=== PATIENT | male | born 1955 | race Caucasian/White ===

== ENCOUNTER 2018-05-08 12:01 | Inpatient (IN) | payer BC, OTHER ==
[~2018-05-08] VITALS: Ht 177.8 cm; Wt 68.0 kg
[2018-05-08] MEDS ORDERED: normal saline 1000ML IV soln IVB ONE ×2 (12:20)
[2018-05-08] MEDS ORDERED: diphenhydrAMINE 50 mg/ml inj IV ONE (12:20)
[2018-05-08] MEDS ORDERED: metoclopramide 5 mg/ml inj IV ONE (12:20)
[2018-05-08] MEDS ORDERED: LORazepam 2 mg/ml vial IV ONE (12:40)
[2018-05-08 12:41] LABS: BASOPHILS % (AUTO) 0.1 % (0-1); EOSINOPHILS % (AUTO) 0 % (0-6); HEMATOCRIT 41.9 % (42.0-52.0); HEMOGLOBIN 14.3 g/dl (14.0-17.9); LYMPHOCYTES % (AUTO) 6.4 % (21-51); MEAN CORPUSCULAR HEMOGLOBIN 30.8 PG (27.0-31.0); MEAN CORPUSCULAR HGB CONC 34.1 % (33.0-36.5); MEAN CORPUSCULAR VOLUME 90.3 FL (78-98); MEAN PLATELET VOLUME 7.8 FL (7.4-10.4); MONOCYTES # (AUTO) 1.3 X10'3 (0-0.9); MONOCYTES % (AUTO) 8.2 % (2-12); NEUTROPHILS # (AUTO) 13.7 X10'3 (1.8-7.7); NEUTROPHILS % (AUTO) 85.3 % (42-75); PLATELET COUNT 192 X10'3 (140-440); RED BLOOD COUNT 4.64 X10'6 (4.70-6.10); RED CELL DISTRIBUTION WIDTH 12.7 % (11.5-14.5); WHITE BLOOD COUNT 16.1 X10'3 (4.5-11.0)
[2018-05-08 12:51] LABS: INR 1.1 INR
[2018-05-08 13:04] LABS: ALANINE AMINOTRANSFERASE 15 U/L (12-78); ALBUMIN 3.4 G/DL (3.4-5.0); ALBUMIN/GLOBULIN RATIO 0.8 (1.1-1.5); ALKALINE PHOSPHATASE 109 IU/L (46-116); ANION GAP 8 (8-16); ASPARTATE AMINO TRANSFERASE 12 U/L (10-37); BILIRUBIN,TOTAL 1.1 MG/DL (0.1-1.0); BLOOD UREA NITROGEN 13 MG/DL (7-18); BUN/CREATININE RATIO 13.3 (5.4-32.0); CALCIUM 8.9 MG/DL (8.5-10.1); CHLORIDE 95 MMOL/L (99-107); CREATININE 0.98 MG/DL (0.60-1.10); GLUCOSE 119 MG/DL (70-104); LIPASE 56 U/L (73-393); POTASSIUM 3.7 MMOL/L (3.5-5.1); SODIUM 130 MMOL/L (135-145); TOTAL CARBON DIOXIDE 27.2 MMOL/L (24-32); TOTAL PROTEIN 7.5 G/DL (6.4-8.2); eGFR 78 ML/MIN
[2018-05-08] MEDS ORDERED: CefTRIAXone 2gm/D5W 50ml 50 ML IV ONE (13:15)
[2018-05-08 13:20] LABS: CLARITY,URINE CLOUDY (Clear); COLOR,URINE YELLOW (Yellow); GLUCOSE, URINE NEGATIVE (Neg); KETONES,URINE 15 mg/dl (Neg); LEUKOCYTE ESTERASE ,URINE NEGATIVE (Neg); NITRITES, URINE NEGATIVE (Neg); OCCULT BLOOD,URINE TRACE-INTACT (Neg); PROTEIN,URINE TRACE mg/dl (Neg)
[2018-05-08 13:22] LABS: UA COLLECTION TYPE URINAL
[2018-05-08 13:33] LABS: AMORPHOUS PHOSPHATES 2+; BACTERIA,URINE NONE SEEN /HPF (Neg); RBC,URINE 0-2 /HPF (0-2); SQUAMOUS EPITHELIAL CELL,UR FEW /LPF (FEW); WBC,URINE 0-4 /HPF (0-4)
[2018-05-08] MEDS ORDERED: morphine 4 MG/ML inj SYRINge IV ONE (14:45)
[2018-05-08] MEDS ORDERED: dexamethasone 4mg/ml inj IV SCH (14:45)
[2018-05-08] MEDS ORDERED: levoFLOXACIN 250mg tablet PO ONE (14:45)
[2018-05-08] MEDS ORDERED: dexamethasone 4mg/ml inj IV ONE (14:50)
[2018-05-08] MEDS ORDERED: PANT-47 PO (14:50)
[2018-05-08] MEDS ORDERED: normal saline 500ml IV soln 500 ML IV ONE (15:25)
[2018-05-08] MEDS ORDERED: morphine 4 MG/ML inj SYRINge IV PRN ×2 (15:30)
[2018-05-08] MEDS ORDERED: ondansetron/PF 4mg/2ml inj IV PRN (15:30)
[2018-05-08] MEDS ORDERED: acetaminophen 650mg rectal suppository RC PRN (15:30)
[2018-05-08] MEDS ORDERED: HYDROmorphone inj. 0.5 MG/0.5 ML DISP.SYRIN IV PRN ×2 (15:30)
[2018-05-08] MEDS ORDERED: bisacodyl 10mg suppository rectal RC PRN (15:30)
[2018-05-08] MEDS ORDERED: HYDROcodone/acetaminophen 5mg/325mg tablet PO PRN (15:30)
[2018-05-08] MEDS ORDERED: acetaminophen 325mg tablet PO PRN ×2 (15:30)
[2018-05-08] MEDS ORDERED: mag hydrox/Alum hydrox/simeth 30ml oral suspension PO PRN (15:30)
[2018-05-08] MEDS ORDERED: diphenhydrAMINE 25mg capsule PO PRN (15:30)
[2018-05-08] MEDS ORDERED: HYDROcodone/acetaminophen 10/325mg tab PO PRN (15:30)
[2018-05-08] MEDS ORDERED: diphenhydrAMINE 50 mg/ml inj IV PRN (15:30)
[2018-05-08] MEDS ORDERED: metoclopramide 5 mg/ml inj IV PRN (15:30)
[2018-05-08] MEDS ORDERED: magnesium hydroxide 30ml (MOM) UD suspension PO PRN (15:30)
[2018-05-08] MEDS ORDERED: pantoprazole 40 MG vial IV ONE (15:35)
[2018-05-08] MEDS ORDERED: iohexol 350MG/ML 100ml bottle IV ONE (15:38)
[2018-05-08 16:10] LABS: CREATINE KINASE 53 U/L (39-308); MAGNESIUM 1.6 MG/DL (1.5-2.4); PHOSPHORUS 1.7 MG/DL (2.3-4.5)
[2018-05-08] MEDS: normal saline 1000ml 1,000 ML IV SCH ×2 (16:15→19:36)
[2018-05-08] MEDS: heparin, porcine 5000 units/ml vial SQ SCH (16:35)
[2018-05-08 19:00] VITALS: BP 143/63
[2018-05-08] MEDS ORDERED: sodium phosphate inj. 30 MMOL in dextrose 5%-water 250 ML IV PRN (19:35)
[2018-05-08] MEDS ORDERED: Neutra Phos packet PO PRN (19:35)
[2018-05-08] MEDS ORDERED: sodium phosphate inj. 15 MMOL in dextrose 5%-water 150 ML IV PRN (19:35)
[2018-05-08] MEDS ORDERED: sodium phosphate inj. 15 MMOL in dextrose 5%-water 150 ML IV ONE (19:40)
[2018-05-08] MEDS: docusate sod 100mg capsule PO SCH (20:55)
[2018-05-08] MEDS ORDERED: temazepam 15mg capsule PO PRN (21:00)
[2018-05-09] VITALS: BP 128/74
[2018-05-09] MEDS: heparin, porcine 5000 units/ml vial SQ SCH ×3 (00:01→17:44)
[2018-05-09] MEDS: normal saline 1000ml 1,000 ML IV SCH ×2 (05:37→19:28)
[2018-05-09 05:52] LABS: BASOPHILS % (AUTO) 0.2 % (0-1); EOSINOPHILS % (AUTO) 0 % (0-6); HEMATOCRIT 37.7 % (42.0-52.0); HEMOGLOBIN 12.8 g/dl (14.0-17.9); LYMPHOCYTES # (AUTO) 1.7 X10'3 (1.1-4.8); LYMPHOCYTES % (AUTO) 12.9 % (21-51); MEAN CORPUSCULAR HEMOGLOBIN 30.7 PG (27.0-31.0); MEAN CORPUSCULAR HGB CONC 33.8 % (33.0-36.5); MEAN CORPUSCULAR VOLUME 90.7 FL (78-98); MEAN PLATELET VOLUME 8.6 FL (7.4-10.4); MONOCYTES # (AUTO) 1.4 X10'3 (0-0.9); MONOCYTES % (AUTO) 10.6 % (2-12); NEUTROPHILS # (AUTO) 9.7 X10'3 (1.8-7.7); NEUTROPHILS % (AUTO) 76.3 % (42-75); PLATELET COUNT 194 X10'3 (140-440); RED BLOOD COUNT 4.15 X10'6 (4.70-6.10); RED CELL DISTRIBUTION WIDTH 12.1 % (11.5-14.5); WHITE BLOOD COUNT 12.8 X10'3 (4.5-11.0)
[2018-05-09 06:03] LABS: ALANINE AMINOTRANSFERASE 17 U/L (12-78); ALBUMIN 2.6 G/DL (3.4-5.0); ALBUMIN/GLOBULIN RATIO 0.7 (1.1-1.5); ALKALINE PHOSPHATASE 96 IU/L (46-116); ANION GAP 9 (8-16); ASPARTATE AMINO TRANSFERASE 11 U/L (10-37); BILIRUBIN,TOTAL 0.7 MG/DL (0.1-1.0); BLOOD UREA NITROGEN 10 MG/DL (7-18); BUN/CREATININE RATIO 11.2 (5.4-32.0); CALCIUM 8.1 MG/DL (8.5-10.1); CHLORIDE 102 MMOL/L (99-107); CHOL/HDL RATIO 3.9 (0.00-4.99); CHOLESTEROL 110 MG/DL (0-200); CREATININE 0.89 MG/DL (0.60-1.10); GLUCOSE 83 MG/DL (70-104); HDL CHOLESTEROL 28 MG/DL (35-60); LDL CHOLESTEROL 66 MG/DL (50-100); POTASSIUM 3.4 MMOL/L (3.5-5.1); SODIUM 135 MMOL/L (135-145); TOTAL CARBON DIOXIDE 24.5 MMOL/L (24-32); TOTAL PROTEIN 6.3 G/DL (6.4-8.2); TRIGLYCERIDES 83 MG/DL (20-135); eGFR 87 ML/MIN
[2018-05-09 07:00] VITALS: BP 124/67
[2018-05-09] MEDS: docusate sod 100mg capsule PO SCH ×2 (08:11→19:35)
[2018-05-09] MEDS ORDERED: potassium Cl 40MEQ/NS 500ml 500 ML IV PRN ×2 (09:00)
[2018-05-09] MEDS ORDERED: potassium Cl 20 mEq SR tablet PO PRN ×3 (09:00→11:15)
[2018-05-09 11:00] VITALS: BP 135/71
[2018-05-09] MEDS: levoFLOXACIN 750MG TABLET PO SCH (11:13)
[2018-05-09] MEDS ORDERED: albuterol 2.5 MG/3 ML nebule ONE (13:37)
[2018-05-09] MEDS: potassium Cl 20 mEq SR tablet PO PRN ×2 (13:46→17:44)
[2018-05-09 16:36] LABS: CLARITY,URINE Clear (Clear); COLOR,URINE Yellow (Yellow); GLUCOSE, URINE Negative (Neg); KETONES,URINE Trace mg/dl (Neg); LEUKOCYTE ESTERASE ,URINE Negative (Neg); NITRITES, URINE Negative (Neg); OCCULT BLOOD,URINE Negative (Neg); PH,URINE 6.5 (4.8-8.0); PROTEIN,URINE Negative (Neg)
[2018-05-09 16:39] LABS: UA COLLECTION TYPE CLN CATCH MIDSTREAM
[2018-05-09] MEDS: magnesium oxide 400mg tablet PO SCH (17:43)
[2018-05-09 19:45] VITALS: BP 125/71
[2018-05-09 23:51] VITALS: BP 127/73
[2018-05-10] MEDS: magnesium oxide 400mg tablet PO SCH ×3 (00:33→16:21)
[2018-05-10] MEDS: heparin, porcine 5000 units/ml vial SQ SCH ×3 (00:34→16:21)
[2018-05-10] MEDS: normal saline 1000ml 1,000 ML IV SCH (05:12)
[2018-05-10 06:00] LABS: BASOPHILS # (AUTO) 0.1 X10'3 (0-0.2); BASOPHILS % (AUTO) 1.5 % (0-1); EOSINOPHILS # (AUTO) 0.1 X10'3 (0-0.9); EOSINOPHILS % (AUTO) 1.2 % (0-6); HEMATOCRIT 37.6 % (42.0-52.0); HEMOGLOBIN 12.7 g/dl (14.0-17.9); LYMPHOCYTES # (AUTO) 1.8 X10'3 (1.1-4.8); LYMPHOCYTES % (AUTO) 18.9 % (21-51); MEAN CORPUSCULAR HEMOGLOBIN 30.8 PG (27.0-31.0); MEAN CORPUSCULAR HGB CONC 33.7 % (33.0-36.5); MEAN CORPUSCULAR VOLUME 91.4 FL (78-98); MEAN PLATELET VOLUME 8.4 FL (7.4-10.4); MONOCYTES # (AUTO) 1.2 X10'3 (0-0.9); MONOCYTES % (AUTO) 12.5 % (2-12); NEUTROPHILS # (AUTO) 6.3 X10'3 (1.8-7.7); NEUTROPHILS % (AUTO) 65.9 % (42-75); PLATELET COUNT 223 X10'3 (140-440); RED BLOOD COUNT 4.11 X10'6 (4.70-6.10); RED CELL DISTRIBUTION WIDTH 13.4 % (11.5-14.5); WHITE BLOOD COUNT 9.5 X10'3 (4.5-11.0)
[2018-05-10 06:31] LABS: ANION GAP 9 (8-16); BILIRUBIN,TOTAL 0.5 MG/DL (0.1-1.0); BLOOD UREA NITROGEN 8 MG/DL (7-18); BUN/CREATININE RATIO 9.1 (5.4-32.0); CALCIUM 8.4 MG/DL (8.5-10.1); CHLORIDE 103 MMOL/L (99-107); CREATININE 0.88 MG/DL (0.60-1.10); GLUCOSE 90 MG/DL (70-104); POTASSIUM 3.8 MMOL/L (3.5-5.1); SODIUM 136 MMOL/L (135-145); TOTAL CARBON DIOXIDE 23.8 MMOL/L (24-32); TOTAL PROTEIN 6.3 G/DL (6.4-8.2); eGFR 88 ML/MIN
[2018-05-10 06:32] LABS: ALANINE AMINOTRANSFERASE 16 U/L (12-78); ALBUMIN 2.5 G/DL (3.4-5.0); ALBUMIN/GLOBULIN RATIO 0.7 (1.1-1.5); ALKALINE PHOSPHATASE 89 IU/L (46-116); ASPARTATE AMINO TRANSFERASE 7 U/L (10-37)
[2018-05-10] MEDS: docusate sod 100mg capsule PO SCH ×2 (07:37→19:31)
[2018-05-10 11:00] VITALS: BP 130/69
[2018-05-10] MEDS: levoFLOXACIN 750MG TABLET PO SCH (11:08)
[2018-05-10 18:00] VITALS: BP 149/74
[2018-05-10] MEDS: lactobacillus rhamnosus 10,000 MMU CELLS/CAPSULE PO SCH (19:31)
[2018-05-11] VITALS: BP 152/74
[2018-05-11] MEDS: heparin, porcine 5000 units/ml vial SQ SCH ×2 (00:04→07:45)
[2018-05-11] MEDS: magnesium oxide 400mg tablet PO SCH ×2 (00:04→07:46)
[2018-05-11 05:16] LABS: BASOPHILS # (AUTO) 0.1 X10'3 (0-0.2); BASOPHILS % (AUTO) 1.5 % (0-1); EOSINOPHILS # (AUTO) 0.1 X10'3 (0-0.9); EOSINOPHILS % (AUTO) 1.2 % (0-6); HEMATOCRIT 39.4 % (42.0-52.0); HEMOGLOBIN 13.3 g/dl (14.0-17.9); LYMPHOCYTES # (AUTO) 1.9 X10'3 (1.1-4.8); LYMPHOCYTES % (AUTO) 20.5 % (21-51); MEAN CORPUSCULAR HEMOGLOBIN 30.7 PG (27.0-31.0); MEAN CORPUSCULAR HGB CONC 33.8 % (33.0-36.5); MEAN CORPUSCULAR VOLUME 90.7 FL (78-98); MEAN PLATELET VOLUME 7.7 FL (7.4-10.4); MONOCYTES # (AUTO) 1.2 X10'3 (0-0.9); MONOCYTES % (AUTO) 12.6 % (2-12); NEUTROPHILS # (AUTO) 5.9 X10'3 (1.8-7.7); NEUTROPHILS % (AUTO) 64.2 % (42-75); PLATELET COUNT 274 X10'3 (140-440); RED BLOOD COUNT 4.35 X10'6 (4.70-6.10); RED CELL DISTRIBUTION WIDTH 12.9 % (11.5-14.5); WHITE BLOOD COUNT 9.2 X10'3 (4.5-11.0)
[2018-05-11 05:39] LABS: ALANINE AMINOTRANSFERASE 20 U/L (12-78); ALBUMIN 2.7 G/DL (3.4-5.0); ALBUMIN/GLOBULIN RATIO 0.7 (1.1-1.5); ALKALINE PHOSPHATASE 97 IU/L (46-116); ANION GAP 6 (8-16); ASPARTATE AMINO TRANSFERASE 12 U/L (10-37); BILIRUBIN,TOTAL 0.4 MG/DL (0.1-1.0); BLOOD UREA NITROGEN 8 MG/DL (7-18); BUN/CREATININE RATIO 9.1 (5.4-32.0); CALCIUM 8.8 MG/DL (8.5-10.1); CHLORIDE 101 MMOL/L (99-107); CREATININE 0.88 MG/DL (0.60-1.10); GLUCOSE 94 MG/DL (70-104); POTASSIUM 3.9 MMOL/L (3.5-5.1); SODIUM 135 MMOL/L (135-145); TOTAL CARBON DIOXIDE 27.6 MMOL/L (24-32); TOTAL PROTEIN 6.8 G/DL (6.4-8.2); eGFR 88 ML/MIN
[2018-05-11 07:00] VITALS: BP 133/74
[2018-05-11] MEDS: lactobacillus rhamnosus 10,000 MMU CELLS/CAPSULE PO SCH (07:45)
[2018-05-11] MEDS: docusate sod 100mg capsule PO SCH (07:46)
[2018-05-11] MEDS ORDERED: pneumococcal 23-VAL P-sac vacc 25 mcg/0.5ml vial IMVAC ONE (08:15)
[2018-05-11] MEDS: levoFLOXACIN 750MG TABLET PO SCH (10:30)
[2018-05-11 11:00] VITALS: BP 137/69
[2018-05-11] MEDS ORDERED: ACET1TAB12 PO (15:38)
[2018-05-11] MEDS ORDERED: MAGN400C PO (15:38)
[2018-05-11] MEDS ORDERED: ALBU8.5H8 IH (15:38)
[2018-05-11] MEDS ORDERED: LEVO750T21 PO (15:38)
== END 2018-05-11 16:14 | disposition home or self-care (01) | DRG 871 ==
LOC: ER 12:01 → ED HOLD 15:28 → SUR 3N 18:07
PROVIDERS: ADMIT Family Medicine; ATTEND Family Medicine
PROC: B3201ZZ Computerized Tomography (CT Scan) of Thoracic Aorta using Low Osmolar Contrast (ICD-10-PCS; principal; 2018-05-08)
DX: A41.9 Sepsis, unspecified organism (principal); J18.9 Pneumonia, unspecified organism; E87.1 Hypo-osmolality and hyponatremia; E83.39 Other disorders of phosphorus metabolism; E86.0 Dehydration; I10 Essential (primary) hypertension; K21.9 Gastro-esophageal reflux disease without esophagitis; N20.9 Urinary calculus, unspecified; N40.0 Benign prostatic hyperplasia without lower urinary tract symptoms; R09.02 Hypoxemia; Z23 Encounter for immunization; Z79.899 Other long term (current) drug therapy
CPT/HCPCS: 36415; 71045; 71046; 71275; 74176; 80053; 80061; 81001; 81003; 82550; 83605; 83690; 83735; 83880; 84100; 84145; 84443; 84484; 85025; 85610; 87040; 87070; 90732; 93005; 94640; 94667; 94668; 94760; 96361; 96365; 96375; 99285; C9113; J0696; J1200; J1644; J2060; J2270; J2765; J7030; J7060; Q9967

== ENCOUNTER 2019-10-02 12:15 | Inpatient (IN) | payer OTHER ==
[~2019-10-02] VITALS: Ht 177.8 cm; Wt 59.4 kg
[~2019-10-02 12:15] MED LIST: ACET1TAB12 PO; ALBU8.5H8 IH; MAGN400C PO; PANT-47 PO; etomidate 2mg/ml inj. ONE
[2019-10-02] MEDS ORDERED: albuterol 2.5 MG/3 ML nebule CONTNEB PRN (12:50)
[2019-10-02] MEDS ORDERED: methylPREDNISolone sod succ 125mg/2ml vial IV ONE (12:50)
[2019-10-02] MEDS ORDERED: normal saline 1000ML IV soln IV ONE (12:50)
[2019-10-02 12:51] LABS: BASOPHILS % (AUTO) 0.1 % (0-1); EOSINOPHILS % (AUTO) 0 % (0-6); HEMATOCRIT 41.7 % (42.0-52.0); HEMOGLOBIN 14.4 g/dl (14.0-17.9); LYMPHOCYTES # (AUTO) 0.4 X10'3 (1.1-4.8); LYMPHOCYTES % (AUTO) 3.7 % (21-51); MEAN CORPUSCULAR HEMOGLOBIN 30.4 PG (27.0-31.0); MEAN CORPUSCULAR HGB CONC 34.4 g/dL (33.0-36.5); MEAN CORPUSCULAR VOLUME 88.4 FL (78-98); MEAN PLATELET VOLUME 8.9 FL (7.4-10.4); MONOCYTES # (AUTO) 0.2 X10'3 (0-0.9); MONOCYTES % (AUTO) 1.9 % (2-12); NEUTROPHILS # (AUTO) 9.9 X10'3 (1.8-7.7); NEUTROPHILS % (AUTO) 94.3 % (42-75); PLATELET COUNT 116 X10'3 (140-440); RED BLOOD COUNT 4.72 X10'6 (4.70-6.10); RED CELL DISTRIBUTION WIDTH 13.8 % (11.5-14.5); WHITE BLOOD COUNT 10.5 X10'3 (4.5-11.0)
[2019-10-02 13:04] LABS: PARTIAL THROMBOPLASTIN TIME 33 SECONDS (22-32)
[2019-10-02 13:08] LABS: ALANINE AMINOTRANSFERASE 50 U/L (12-78); ALBUMIN 2.3 G/DL (3.4-5.0); ALBUMIN/GLOBULIN RATIO 0.6 (1.1-1.5); ALKALINE PHOSPHATASE 90 IU/L (46-116); ANION GAP 15 (8-16); ASPARTATE AMINO TRANSFERASE 81 U/L (10-37); BILIRUBIN,TOTAL 0.9 MG/DL (0.1-1.0); BLOOD UREA NITROGEN 78 MG/DL (7-18); BUN/CREATININE RATIO 21.4 (5.4-32.0); CALCIUM 7.5 MG/DL (8.5-10.1); CHLORIDE 91 MMOL/L (99-107); CREATININE 3.64 MG/DL (0.60-1.10); GLUCOSE 96 MG/DL (70-104); SODIUM 131 MMOL/L (135-145); TOTAL CARBON DIOXIDE 25.1 MMOL/L (24-32); TOTAL PROTEIN 6.4 G/DL (6.4-8.2); eGFR 17 ML/MIN
[2019-10-02] MEDS ORDERED: azithromycin/NS 500mg/250ml 250 ML IV ONE (13:25)
[2019-10-02] MEDS ORDERED: CefTRIAXone 2gm/D5W 50ml 50 ML IV ONE (13:25)
[2019-10-02 13:51] LABS: ABG BASE EXCESS -3.3 mmol/L (-2.0-3.0); ABG HCO3 19.2 mmol/L (22.0-26.0); ABG OXYGEN SATURATION 92.3 % (95-98); ABG PCO2 (T) 27.8 mmHg (35.0-45.0); ABG PH (T) 7.457 (7.350-7.450); ABG PO2 (T) 66.7 mmHg (83-108); ALLEN'S TEST Positive; FCOHb 0.2 % (0.5-1.5); FLOW 2 L/min; FO2Hb 92.1 % (94-100); TOTAL HEMOGLOBIN 13.4 G/dl (14.0-17.9)
[2019-10-02] MEDS ORDERED: PANT20TA3 PO (14:15)
[2019-10-02] MEDS ORDERED: normal saline 1000ML IV soln IVB ONE (14:20)
[2019-10-02] MEDS ORDERED: morphine 4 MG/ML inj SYRINge IV ONE (14:30)
[2019-10-02] MEDS ORDERED: magnesium 2GM in 50ml NS 50 ML IV ONE (14:30)
[2019-10-02] MEDS ORDERED: dronabinol 2.5mg capsule PO STA (15:02)
[2019-10-02] MEDS ORDERED: mag hydrox/Alum hydrox/simeth 30ml oral suspension PO PRN (15:10)
[2019-10-02] MEDS ORDERED: magnesium hydroxide 30ml (MOM) UD suspension PO PRN (15:10)
[2019-10-02] MEDS ORDERED: ondansetron/PF 4mg/2ml inj IV PRN (15:10)
[2019-10-02] MEDS ORDERED: ipratropium/albuterol 3ml nebule NEB PRN (15:10)
[2019-10-02] MEDS ORDERED: magnesium 4gm in 100ml NS 100 ML IV PRN (15:10)
[2019-10-02] MEDS ORDERED: potassium CL 10mEq/100ml bag 100 ML IV PRN ×2 (15:10)
[2019-10-02] MEDS ORDERED: potassium Cl 20 mEq SR tablet PO PRN ×2 (15:10)
[2019-10-02] MEDS ORDERED: magnesium 2GM in 50ml NS 50 ML IV PRN (15:10)
[2019-10-02] MEDS ORDERED: levalbuterol 0.63mg/3ml nebule IH PRN (15:10)
[2019-10-02] MEDS ORDERED: acetaminophen 325mg tablet PO PRN (15:10)
--- NOTE | 2019-10-02 15:18 | NUR ---
OFF TO GET NM OF LUNGS WITH TECH
[2019-10-02 15:41] LABS: D-DIMER 1.32 MG/L FEU (0-0.50)
[2019-10-02 16:46] LABS: ABG BASE EXCESS -8.3 mmol/L (-2.0-3.0); ABG HCO3 15.3 mmol/L (22.0-26.0); ABG OXYGEN SATURATION 91.8 % (95-98); ABG PCO2 (T) 26.9 mmHg (35.0-45.0); ABG PH (T) 7.372 (7.350-7.450); ABG PO2 (T) 67.4 mmHg (83-108); ALLEN'S TEST Positive; FCOHb 0.4 % (0.5-1.5); FLOW 2 L/min; FMetHb 0.1 % (0.3-1.12); FO2Hb 91.3 % (94-100); TOTAL HEMOGLOBIN 14.3 G/dl (14.0-17.9)
[2019-10-02 17:17] LABS: ALBUMIN 2.1 G/DL (3.4-5.0); ANION GAP 18 (8-16); BLOOD UREA NITROGEN 78 MG/DL (7-18); BUN/CREATININE RATIO 24.7 (5.4-32.0); CHLORIDE 99 MMOL/L (99-107); CREATININE 3.16 MG/DL (0.60-1.10); GLUCOSE 136 MG/DL (70-104); POTASSIUM 3.6 MMOL/L (3.5-5.1); SODIUM 136 MMOL/L (135-145); TOTAL CARBON DIOXIDE 18.6 MMOL/L (24-32); eGFR 20 ML/MIN
[2019-10-02] MEDS ORDERED: heparin 25,000 UNIT/250ml bag 250 ML IV SCH (18:31)
[2019-10-02] MEDS ORDERED: heparin 10,000 units/1 ML INJ IV ONE (18:35)
[2019-10-02] MEDS ORDERED: digoxin 250mcg/ml 2ml ampule IV ONE (18:40)
[2019-10-02] MEDS ORDERED: LIDOcaine 1% w/epiNEPHrine 1:200,000 30ml vial SQ ONE (19:15)
[2019-10-02] MEDS: K and/or MAG REPLACEMENT MC SCH (20:00)
[2019-10-02] MEDS ORDERED: metroNIDAZOLE-Flagyl 250mg/NS 50 ML IV SCH (20:00)
[2019-10-02] MEDS ORDERED: heparin, porcine 5000 units/ml vial SQ SCH (20:00)
[2019-10-02] MEDS ORDERED: diltiazem 5mg/ml 5ml inj. IV ONE (20:00)
[2019-10-02] MEDS: heparin 25,000 UNIT/250ml bag 250 ML IV SCH (20:18)
[2019-10-02] MEDS: normal saline 1000ml 1,000 ML IV SCH (20:25)
[2019-10-02] MEDS: oseltamivir 30mg capsule PO SCH (20:28)
--- NOTE | 2019-10-02 20:44 | NUR ---
NURSING NOTE: PT O2 TITRATED TO 4L NC AT THIS TIME. PT SP02 DROPPED TO 88% ON 1.5L NC. NOTIFIED OBED PORTER OF TITRATION. NO NEW ORDERS.
[2019-10-02] MEDS: cefepime 1GM in D5W 50mL 50 ML IV SCH (21:00)
[2019-10-02 21:07] LABS: COLOR,URINE YELLOW (Yellow); GLUCOSE, URINE NEGATIVE (Neg); KETONES,URINE NEGATIVE (Neg); LEUKOCYTE ESTERASE ,URINE NEGATIVE (Neg); NITRITES, URINE NEGATIVE (Neg); OCCULT BLOOD,URINE SMALL (Neg); PH,URINE 5.5 (4.8-8.0); PROTEIN,URINE NEGATIVE (Neg); UROBILINOGEN,URINE 0.2 E.U/dL (0.2-1.0)
[2019-10-02] MEDS ORDERED: LIDOcaine 2% 10ml TOPICAL JELLY (Urojet) MM ONE (21:10)
[2019-10-02 21:18] LABS: CLARITY,URINE SLIGHTLY CLOUDY (Clear); UA COLLECTION TYPE URINAL
[2019-10-02 21:19] LABS: BACTERIA,URINE 1+ /HPF (Neg); MUCUS STRANDS FEW /LPF (Neg); RBC,URINE 0-2 /HPF (0-2); SQUAMOUS EPITHELIAL CELL,UR FEW /LPF (FEW); TRANSITIONAL EPI CELLS,URINE MODERATE /HPF
[2019-10-02 21:20] LABS: CELLULAR CAST 0-4 /LPF (NEGATIVE)
--- NOTE | 2019-10-02 23:30 | NUR ---
Received report from Alonso MONSALVE. Patient arrived to floor via gurney. He is alert/oriented x4, appears restless and anxious. HR in atrial fibrillation in 90s-110s, BP WNL and not on any vasopressors. Patient saturating 94% on 4L NC. Will continue to monitor patient closely.
[2019-10-03] VITALS (24 sets, daily range): BP systolic 96–146; BP diastolic 46–85
[2019-10-03] MEDS: normal saline 1000ml 1,000 ML IV SCH ×3 (01:06→21:22)
[2019-10-03] MEDS: dronabinol 2.5mg capsule PO PRN (02:58)
--- NOTE | 2019-10-03 03:07 | NUR ---
Patient persistently saturating between 88-90% on 6L NC. Lung sounds diminished bilaterally. Patient is also extremely restless in bed, tachypneic, and has pain to L side with coughing and deep breathing.Patient placed on high flow cannula, now saturating at 92% on 6L High flow NC. Pain/anxiety medication given as ordered. Will continue to monitor and to titrate 02 as needed.
[2019-10-03 05:26] LABS: BASOPHILS % (AUTO) 0.1 % (0-1); EOSINOPHILS % (AUTO) 0 % (0-6); HEMATOCRIT 35.3 % (42.0-52.0); LYMPHOCYTES # (AUTO) 0.3 X10'3 (1.1-4.8); LYMPHOCYTES % (AUTO) 2.1 % (21-51); MEAN CORPUSCULAR HEMOGLOBIN 30.1 PG (27.0-31.0); MEAN CORPUSCULAR VOLUME 88.5 FL (78-98); MONOCYTES # (AUTO) 0.3 X10'3 (0-0.9); MONOCYTES % (AUTO) 2.7 % (2-12); NEUTROPHILS # (AUTO) 12.1 X10'3 (1.8-7.7); NEUTROPHILS % (AUTO) 95.1 % (42-75); PLATELET COUNT 117 X10'3 (140-440); RED BLOOD COUNT 3.99 X10'6 (4.70-6.10); RED CELL DISTRIBUTION WIDTH 13.8 % (11.5-14.5); WHITE BLOOD COUNT 12.7 X10'3 (4.5-11.0)
[2019-10-03 05:53] LABS: ALANINE AMINOTRANSFERASE 45 U/L (12-78); ALBUMIN/GLOBULIN RATIO 0.5 (1.1-1.5); ALKALINE PHOSPHATASE 84 IU/L (46-116); ANION GAP 14 (8-16); ASPARTATE AMINO TRANSFERASE 72 U/L (10-37); BILIRUBIN,TOTAL 0.9 MG/DL (0.1-1.0); BLOOD UREA NITROGEN 70 MG/DL (7-18); BUN/CREATININE RATIO 35.2 (5.4-32.0); CALCIUM 7.3 MG/DL (8.5-10.1); CHLORIDE 102 MMOL/L (99-107); CREATININE 1.99 MG/DL (0.60-1.10); GLUCOSE 103 MG/DL (70-104); MAGNESIUM 2.4 MG/DL (1.5-2.4); POTASSIUM 3.2 MMOL/L (3.5-5.1); SODIUM 138 MMOL/L (135-145); TOTAL CARBON DIOXIDE 21.7 MMOL/L (24-32); TOTAL PROTEIN 5.7 G/DL (6.4-8.2); TROPONIN I < 0.04 NG/ML (0.0-0.05); eGFR 34 ML/MIN
--- NOTE | 2019-10-03 06:40 | NUR ---
Report received from GRICEL Field
--- NOTE | 2019-10-03 06:42 | NUR ---
Problems reprioritized. Patient report given, questions answered & plan of care reviewed with Addie MONSALVE.
[2019-10-03] MEDS ORDERED: CefTRIAXone 2gm/D5W 50ml 50 ML IV SCH (08:00)
[2019-10-03] MEDS: K and/or MAG REPLACEMENT MC SCH ×2 (08:00→19:34)
[2019-10-03] MEDS: cefepime 1GM in D5W 50mL 50 ML IV SCH ×2 (08:44→19:41)
[2019-10-03] MEDS: potassium Cl 20mEq/100mL bag 100 ML IV PRN ×2 (08:44→14:51)
[2019-10-03] MEDS: methylPREDNISolone sod succ 125mg/2ml vial IV SCH ×3 (08:45→19:41)
[2019-10-03] MEDS: oseltamivir 30mg capsule PO SCH ×2 (08:45→19:42)
[2019-10-03] MEDS: pantoprazole 40mg Tablet.DR PO SCH (08:45)
[2019-10-03] MEDS: azithromycin/NS 500mg/250ml 250 ML IV SCH (09:41)
[2019-10-03] MEDS ORDERED: pneumococcal 23-VAL P-sac vacc 25 mcg/0.5ml vial IMVAC ONE (10:00)
[2019-10-03] MEDS ORDERED: FLU VACC QS2019-20 36MOS UP/PF 60 MCG/0.5 ML SYRINGE IMVAC ONE (10:00)
[2019-10-03] MEDS ORDERED: HYDROmorphone 1 mg/ml syringe IV PRN (10:40)
[2019-10-03] MEDS: diltiazem-NS 100mg/100ml 100 ML IV SCH (10:40)
[2019-10-03] MEDS ORDERED: diltiazem 5mg/ml 5ml inj. IV ONE (10:55)
--- NOTE | 2019-10-03 12:04 | NUR ---
Malnutrition consult: Pt admit w/ sepsis, RLL and LLL PNA related to flu, ELLIS secondary to sepsis s/p fluid and has good urine output per MD. AOx3 and restless per EMR. Pt PO 50% breakfast this AM per RN receiving marinol. LBM 10/02. Receiving electrolyte replacement per protocol. Pt currently has normal strength, no edema/wounds, and no significant wt loss hx compared to prior admits. Pt does not meet minimum malnutrition criteria at this time. Will monitor for additional protein needs this admit. Rec: 1. continue heart healthy diet 2. monitor for ONS needs pending further PO hx 3. routine bowel care 4. wt per rx Addendum: 10/03/19 at [address] Amended: Links added.
[2019-10-03] MEDS: heparin 10,000 units/1 ML INJ IV PRN (12:13)
[2019-10-03] MEDS: heparin 25,000 UNIT/250ml bag 250 ML IV SCH (17:56)
--- NOTE | 2019-10-03 18:20 | NUR ---
Patient in room CICU 2013. I have received report from Addie MONSALVE and had the opportunity to ask questions and assume patient care. Patient resting in bed, restless and mildly anxious with significant other at bedside. Vitals WNL, patient in atrial fibrillation in low 100s, saturation at 97% on 15L High flow NC. Will continue to monitor patient closely.
--- NOTE | 2019-10-03 18:43 | NUR ---
Report given to GRICEL Field
[2019-10-03] MEDS: lactobacillus rhamnosus 10,000 MMU CELLS/CAPSULE PO SCH (19:41)
[2019-10-03] MEDS: diphenhydrAMINE 50 mg/ml inj IV PRN (19:41)
[2019-10-03] MEDS: HYDROcodone/acetaminophen 10/325mg tab PO PRN (21:36)
[2019-10-04] VITALS (23 sets, daily range): BP systolic 95–140; BP diastolic 62–96
[2019-10-04] MEDS: methylPREDNISolone sod succ 125mg/2ml vial IV SCH ×4 (02:13→20:03)
[2019-10-04 03:08] LABS: BASOPHILS % (AUTO) 0.2 % (0-1); EOSINOPHILS % (AUTO) 0 % (0-6); HEMATOCRIT 35.6 % (42.0-52.0); HEMOGLOBIN 12.1 g/dl (14.0-17.9); LYMPHOCYTES # (AUTO) 0.5 X10'3 (1.1-4.8); LYMPHOCYTES % (AUTO) 3.8 % (21-51); MEAN CORPUSCULAR HEMOGLOBIN 30.2 PG (27.0-31.0); MEAN CORPUSCULAR VOLUME 88.8 FL (78-98); MEAN PLATELET VOLUME 8.7 FL (7.4-10.4); MONOCYTES # (AUTO) 0.6 X10'3 (0-0.9); NEUTROPHILS # (AUTO) 11.4 X10'3 (1.8-7.7); PLATELET COUNT 113 X10'3 (140-440); RED BLOOD COUNT 4.01 X10'6 (4.70-6.10); RED CELL DISTRIBUTION WIDTH 14.3 % (11.5-14.5); WHITE BLOOD COUNT 12.6 X10'3 (4.5-11.0)
[2019-10-04 03:46] LABS: ALANINE AMINOTRANSFERASE 45 U/L (12-78); ALBUMIN 1.9 G/DL (3.4-5.0); ALBUMIN/GLOBULIN RATIO 0.5 (1.1-1.5); ALKALINE PHOSPHATASE 84 IU/L (46-116); ANION GAP 10 (8-16); ASPARTATE AMINO TRANSFERASE 66 U/L (10-37); BILIRUBIN,TOTAL 0.8 MG/DL (0.1-1.0); BLOOD UREA NITROGEN 68 MG/DL (7-18); BUN/CREATININE RATIO 47.9 (5.4-32.0); CALCIUM 7.7 MG/DL (8.5-10.1); CHLORIDE 106 MMOL/L (99-107); CREATININE 1.42 MG/DL (0.60-1.10); GLUCOSE 109 MG/DL (70-104); MAGNESIUM 2.2 MG/DL (1.5-2.4); POTASSIUM 3.9 MMOL/L (3.5-5.1); SODIUM 139 MMOL/L (135-145); TOTAL CARBON DIOXIDE 22.7 MMOL/L (24-32); TOTAL PROTEIN 5.7 G/DL (6.4-8.2); eGFR 51 ML/MIN
[2019-10-04] MEDS: dronabinol 2.5mg capsule PO PRN ×3 (06:10→22:35)
[2019-10-04] MEDS: heparin 10,000 units/1 ML INJ IV PRN ×2 (06:36→16:55)
--- NOTE | 2019-10-04 06:37 | NUR ---
Problems reprioritized. Patient report given, questions answered & plan of care reviewed with Ricardo RN.
[2019-10-04] MEDS: diltiazem-NS 100mg/100ml 100 ML IV SCH ×2 (06:40→19:07)
[2019-10-04] MEDS: cefepime 1GM in D5W 50mL 50 ML IV SCH ×2 (07:09→20:01)
[2019-10-04] MEDS: azithromycin/NS 500mg/250ml 250 ML IV SCH (07:09)
[2019-10-04] MEDS: K and/or MAG REPLACEMENT MC SCH ×2 (07:10→20:00)
[2019-10-04] MEDS: pantoprazole 40mg Tablet.DR PO SCH (07:10)
[2019-10-04] MEDS: lactobacillus rhamnosus 10,000 MMU CELLS/CAPSULE PO SCH ×2 (07:10→20:04)
[2019-10-04] MEDS: oseltamivir 30mg capsule PO SCH ×2 (07:10→20:04)
[2019-10-04] MEDS: normal saline 1000ml 1,000 ML IV SCH (07:12)
[2019-10-04] MEDS: HYDROcodone/acetaminophen 10/325mg tab PO PRN (15:23)
[2019-10-04 15:37] LABS: PARTIAL THROMBOPLASTIN TIME 41 SECONDS (22-32)
[2019-10-04] MEDS: heparin 25,000 UNIT/250ml bag 250 ML IV SCH (16:08)
--- NOTE | 2019-10-04 18:15 | NUR ---
Patient in room CICU 2013. I have received report from and had the opportunity to ask questions and assume patient care.
--- NOTE | 2019-10-04 20:05 | NUR ---
Pt with RUL wheeze, could benefit from breathing tx however his HR is >130. RN is aware and working on getting this down. Pt does have some anxiety. Tx will be given once HR is more under control. Still on 15 lpm high flow O2, will cont to monitor. Addendum: 10/04/19 at 2006 by Sharon Bradshaw RT Amended: Links added.
[2019-10-04] MEDS: diphenhydrAMINE 50 mg/ml inj IV PRN (22:13)
[2019-10-04 22:43] LABS: PARTIAL THROMBOPLASTIN TIME 52 SECONDS (22-32)
[2019-10-04] MEDS ORDERED: furosemide 40mg/4ml inj ONE (23:29)
[2019-10-04] MEDS ORDERED: furosemide 40mg/4ml inj IV ONE (23:30)
--- NOTE | 2019-10-04 23:30 | NUR ---
Pt becoming more and more anxious with saturations dropping to low 70's. Placed pt on a high flow O2 tower, pt became even more anxious and tore off his nasal cannula and refused to place back on. GRICEL Bangura was able to get him to cooperate, however pt still take his O2 off intermittently. Pt currently keeping O2 on, setting are 45 lpm and 100% with saturations up to 89% currently and still very anxious. Pt breath sounds are very coarse throughout, which is a change from earlier this evening. Raulito Santiago NP has been called and RN is to give lasix. Will cont to monitor pt and titrate O2 as needed. Addendum: 10/04/19 at 2334 by Sharon Bradshaw RT Amended: Links added.
[2019-10-05] VITALS (26 sets, daily range): BP systolic 81–142; BP diastolic 46–73
[2019-10-05] MEDS ORDERED: morphine 4 MG/ML inj SYRINge IV ONE
[2019-10-05] MEDS ORDERED: morphine 4 MG/ML inj SYRINge ONE
[2019-10-05] MEDS ORDERED: LORazepam 2 mg/ml vial IV ONE (00:50)
[2019-10-05] MEDS ORDERED: LORazepam 2 mg/ml vial ONE (00:51)
[2019-10-05] MEDS ORDERED: haloperidol lactate 5mg/ml inj IM ONE (01:10)
[2019-10-05] MEDS: methylPREDNISolone sod succ 125mg/2ml vial IV SCH ×4 (03:33→19:40)
[2019-10-05] MEDS: diltiazem-NS 100mg/100ml 100 ML IV SCH ×2 (03:34→22:40)
[2019-10-05 05:10] LABS: BASOPHILS % (AUTO) 0.1 % (0-1); EOSINOPHILS % (AUTO) 0 % (0-6); HEMATOCRIT 35.6 % (42.0-52.0); HEMOGLOBIN 12.1 g/dl (14.0-17.9); LYMPHOCYTES # (AUTO) 0.6 X10'3 (1.1-4.8); LYMPHOCYTES % (AUTO) 3.6 % (21-51); MEAN CORPUSCULAR HEMOGLOBIN 30.1 PG (27.0-31.0); MEAN CORPUSCULAR HGB CONC 34.1 g/dL (33.0-36.5); MEAN CORPUSCULAR VOLUME 88.2 FL (78-98); MEAN PLATELET VOLUME 8.9 FL (7.4-10.4); MONOCYTES # (AUTO) 0.5 X10'3 (0-0.9); MONOCYTES % (AUTO) 3.1 % (2-12); NEUTROPHILS # (AUTO) 14.3 X10'3 (1.8-7.7); NEUTROPHILS % (AUTO) 93.2 % (42-75); PLATELET COUNT 122 X10'3 (140-440); RED BLOOD COUNT 4.04 X10'6 (4.70-6.10); RED CELL DISTRIBUTION WIDTH 14.2 % (11.5-14.5); WHITE BLOOD COUNT 15.4 X10'3 (4.5-11.0)
[2019-10-05 05:14] LABS: PARTIAL THROMBOPLASTIN TIME 52 SECONDS (22-32)
[2019-10-05 05:27] LABS: ALANINE AMINOTRANSFERASE 46 U/L (12-78); ALBUMIN/GLOBULIN RATIO 0.5 (1.1-1.5); ALKALINE PHOSPHATASE 89 IU/L (46-116); ANION GAP 8 (8-16); ASPARTATE AMINO TRANSFERASE 63 U/L (10-37); BLOOD UREA NITROGEN 55 MG/DL (7-18); BUN/CREATININE RATIO 46.6 (5.4-32.0); CALCIUM 8.2 MG/DL (8.5-10.1); CHLORIDE 107 MMOL/L (99-107); CREATININE 1.18 MG/DL (0.60-1.10); GLUCOSE 127 MG/DL (70-104); MAGNESIUM 1.7 MG/DL (1.5-2.4); POTASSIUM 3.8 MMOL/L (3.5-5.1); SODIUM 142 MMOL/L (135-145); TOTAL CARBON DIOXIDE 27.4 MMOL/L (24-32); eGFR 63 ML/MIN
[2019-10-05] MEDS: heparin 25,000 UNIT/250ml bag 250 ML IV SCH ×2 (06:40→19:00)
--- NOTE | 2019-10-05 06:45 | NUR ---
Problems reprioritized. Patient report given, questions answered & plan of care reviewed with Vibha RN.
[2019-10-05] MEDS: pantoprazole 40mg Tablet.DR PO SCH (07:30)
[2019-10-05] MEDS: K and/or MAG REPLACEMENT MC SCH ×2 (08:00→20:00)
[2019-10-05] MEDS ORDERED: etomidate 2mg/ml inj. IV ONE (08:20)
[2019-10-05] MEDS ORDERED: ziprasidone IM 20mg inj **IM only IM ONE (08:20)
[2019-10-05] MEDS ORDERED: midazolam 2 mg/2 ml injection ONE (08:25)
[2019-10-05] MEDS ORDERED: midazolam 100mg in NS 100ml 100 ML IV PRN (08:25)
[2019-10-05] MEDS ORDERED: fentaNYL/PF 50MCG/1 ML 2ML syringe ONE (08:26)
[2019-10-05] MEDS ORDERED: CISatracurium **Bolus** 2 mg/ml inj IV ONE (08:45)
[2019-10-05] MEDS: FENTANYL-0.9 % NACL/PF 100 ML IV PRN (09:01)
[2019-10-05] MEDS: cefepime 1GM in D5W 50mL 50 ML IV SCH (09:02)
[2019-10-05] MEDS: azithromycin/NS 500mg/250ml 250 ML IV SCH (09:02)
[2019-10-05] MEDS ORDERED: ipratropium/albuterol 3ml nebule NEB PRN (09:10)
--- NOTE | 2019-10-05 09:39 | NUR ---
Pt became extremely agitated and hypoxic. Pt was emergently intubated by Dr Connell. Pt tolerated well. Will cont to monitor
[2019-10-05] MEDS ORDERED: pneumococcal 23-VAL P-sac vacc 25 mcg/0.5ml vial IMVAC ONE (10:00)
[2019-10-05] MEDS ORDERED: FLU VACC QS2019-20 36MOS UP/PF 60 MCG/0.5 ML SYRINGE IMVAC ONE (10:00)
[2019-10-05] MEDS: NORepinephrine 8mg/ 250ml NS 250 ML IV SCH ×3 (11:54→23:11)
[2019-10-05] MEDS: ipratropium/albuterol 3ml nebule NEB SCH ×4 (11:56→23:07)
--- NOTE | 2019-10-05 12:23 | NUR ---
MAP less than 60 SBP in the 80s Levo started as ordered
[2019-10-05] MEDS ORDERED: iohexol 350MG/ML 100ml bottle IV ONE (13:46)
[2019-10-05] MEDS: cefepime 2g/NS 100ml ADVANTAGE 100 ML IV SCH ×2 (16:22→23:52)
--- NOTE | 2019-10-05 17:09 | NUR ---
reassessment: Pt emergently intubated, sedated after becoming hypoxic. Per paving machine operator during critical care rounds, to start TF today, pending TF consult, d/w bedside RN. TF recs below. Rec: 1. When TF consult received, continuous TF with Vital AF starting at 20ml/hr, advance by 20ml q 8 as tolerated to goal of 70ml/hr to provide 2016 kcal, 126 g protein with 1360 ml free water and total volume of 1680 ml. 2. when TF, PALB q /; daily weights 3. routine bowel care 4. when providing tube feedings, no additional water flush per Greenkeeper at rounds Addendum: 10/05/19 at 1709 by Wing Santa MULLINS Amended: Links added. Addendum: 10/05/19 at [address] RD agree with note
--- NOTE | 2019-10-05 18:57 | NUR ---
Patient in room CICU 2013. I have received report from ajit wu and had the opportunity to ask questions and assume patient care.
[2019-10-05] MEDS: oseltamivir phos 75mg capsule PO SCH (19:40)
[2019-10-05] MEDS: lactobacillus rhamnosus 10,000 MMU CELLS/CAPSULE PO SCH ×2 (19:44→20:00)
--- NOTE | 2019-10-05 20:40 | NUR ---
pt placed on transport monitor and taken for a cta. respiratory therapist at bedside
[2019-10-06] VITALS (23 sets, daily range): BP systolic 87–128; BP diastolic 50–65
[2019-10-06] MEDS: methylPREDNISolone sod succ 125mg/2ml vial IV SCH ×4 (01:52→19:56)
[2019-10-06] MEDS: NORepinephrine 8mg/ 250ml NS 250 ML IV SCH ×6 (03:03→22:23)
[2019-10-06] MEDS: ipratropium/albuterol 3ml nebule NEB SCH ×6 (03:11→22:54)
[2019-10-06 03:16] LABS: PARTIAL THROMBOPLASTIN TIME 58 SECONDS (22-32)
[2019-10-06 03:17] LABS: BASOPHILS % (AUTO) 0.1 % (0-1); EOSINOPHILS % (AUTO) 0 % (0-6); HEMATOCRIT 32.5 % (42.0-52.0); HEMOGLOBIN 10.9 g/dl (14.0-17.9); LYMPHOCYTES # (AUTO) 0.4 X10'3 (1.1-4.8); LYMPHOCYTES % (AUTO) 2.9 % (21-51); MEAN CORPUSCULAR HEMOGLOBIN 30.1 PG (27.0-31.0); MEAN CORPUSCULAR HGB CONC 33.7 g/dL (33.0-36.5); MEAN CORPUSCULAR VOLUME 89.4 FL (78-98); MEAN PLATELET VOLUME 8.9 FL (7.4-10.4); MONOCYTES # (AUTO) 0.2 X10'3 (0-0.9); MONOCYTES % (AUTO) 1.8 % (2-12); NEUTROPHILS # (AUTO) 12.1 X10'3 (1.8-7.7); NEUTROPHILS % (AUTO) 95.2 % (42-75); PLATELET COUNT 118 X10'3 (140-440); RED BLOOD COUNT 3.63 X10'6 (4.70-6.10); RED CELL DISTRIBUTION WIDTH 14.3 % (11.5-14.5); WHITE BLOOD COUNT 12.8 X10'3 (4.5-11.0)
[2019-10-06 03:31] LABS: ALANINE AMINOTRANSFERASE 39 U/L (12-78); ALBUMIN 1.8 G/DL (3.4-5.0); ALBUMIN/GLOBULIN RATIO 0.5 (1.1-1.5); ALKALINE PHOSPHATASE 80 IU/L (46-116); ANION GAP 1 (8-16); ASPARTATE AMINO TRANSFERASE 43 U/L (10-37); BILIRUBIN,TOTAL 0.8 MG/DL (0.1-1.0); BLOOD UREA NITROGEN 47 MG/DL (7-18); BUN/CREATININE RATIO 46.5 (5.4-32.0); CHLORIDE 112 MMOL/L (99-107); CREATININE 1.01 MG/DL (0.60-1.10); GLUCOSE 189 MG/DL (70-104); MAGNESIUM 1.7 MG/DL (1.5-2.4); POTASSIUM 4.8 MMOL/L (3.5-5.1); SODIUM 144 MMOL/L (135-145); TOTAL CARBON DIOXIDE 31.5 MMOL/L (24-32); TOTAL PROTEIN 5.5 G/DL (6.4-8.2); eGFR 75 ML/MIN
--- NOTE | 2019-10-06 04:00 | NUR ---
pt started to wake up and started thrashing. sedation turned back on.
[2019-10-06] MEDS: FENTANYL-0.9 % NACL/PF 100 ML IV PRN ×2 (04:11→16:06)
[2019-10-06] MEDS: azithromycin/NS 500mg/250ml 250 ML IV SCH (07:18)
[2019-10-06] MEDS: oseltamivir phos 75mg capsule PO SCH ×2 (07:19→19:57)
[2019-10-06] MEDS: lactobacillus rhamnosus 10,000 MMU CELLS/CAPSULE PO SCH (07:19)
[2019-10-06] MEDS: K and/or MAG REPLACEMENT MC SCH ×2 (07:20→19:57)
[2019-10-06] MEDS: pantoprazole 40mg Tablet.DR PO SCH (07:30)
[2019-10-06] MEDS ORDERED: midazolam 100mg in NS 100ml 100 ML IV PRN (08:25)
[2019-10-06] MEDS ORDERED: dextrose 50%-water 50ml dispensing syringe IV PRN (08:35)
[2019-10-06] MEDS ORDERED: insulin Lispro (HumaLOG) vial - multi-dose SQ SCH (08:35)
[2019-10-06] MEDS ORDERED: MESSAGE TO PHARMACY PO ONE (08:35)
[2019-10-06] MEDS ORDERED: dextrose ORAL solution 15 GM/59 ML bottle PO PRN ×2 (08:35)
[2019-10-06] MEDS ORDERED: glucagon, human recombinant 1mg kit SUBCUT PRN (08:35)
[2019-10-06 09:03] LABS: HEMOGLOBIN A1C 6.3 % (4.5-6.2)
[2019-10-06] MEDS: cefepime 2g/NS 100ml ADVANTAGE 100 ML IV SCH ×2 (09:03→16:49)
[2019-10-06] MEDS ORDERED: FENTANYL-0.9 % NACL/PF 100 ML IV PRN (12:00)
[2019-10-06] MEDS: pantoprazole 40 MG vial IV SCH (12:08)
[2019-10-06] MEDS ORDERED: amiodarone 150mg/dext, iso-os 100 ML IV ONE ×2 (12:10→12:13)
[2019-10-06] MEDS ORDERED: amiodarone/D5 360MG/200ML BAG 200 ML IV ONE (12:13)
--- NOTE | 2019-10-06 12:44 | NUR ---
Tube feeding consult: Patient intubated and sedated. Tube feeding consult received. Pt had been emergently intubated, sedated after becoming hypoxic. Per lucerne farmer during critical care rounds no additional free water flush. Will continue to follow. Rec: 1. continuous TF with Vital AF starting at 20ml/hr, advance by 20ml q 8 as tolerated to goal of 70ml/hr to provide 2016 kcal, 126 g protein with 1360 ml free water and total volume of 1680 ml. 2. PALB q /; daily weights 3. routine bowel care 4. no additional water flush per Wool Handler Addendum: 10/06/19 at [address] Amended: Links added.
[2019-10-06] MEDS ORDERED: acetaminophen 325mg tablet OGT PRN (13:39)
[2019-10-06] MEDS ORDERED: dextrose ORAL solution 15 GM/59 ML bottle OGT PRN ×2 (13:43→13:44)
[2019-10-06] MEDS ORDERED: mag hydrox/Alum hydrox/simeth 30ml oral suspension OGT PRN (13:45)
[2019-10-06] MEDS: amiodarone/D5 360MG/200ML BAG 200 ML IV SCH ×2 (13:58→19:58)
[2019-10-06] MEDS: insulin regular, human vial - multi-dose SQ SCH ×2 (14:05→20:10)
[2019-10-06] MEDS: mineral oil/petrolatum ophthal oint EACHEYE SCH ×2 (14:41→19:56)
--- NOTE | 2019-10-06 18:20 | NUR ---
Patient in room CICU 2013. I have received report and had the opportunity to ask questions and assume patient care.
[2019-10-06] MEDS: diltiazem-NS 100mg/100ml 100 ML IV SCH (18:40)
[2019-10-06] MEDS: lactobacillus rhamnosus 10,000 MMU CELLS/CAPSULE OGT SCH (19:56)
[2019-10-06] MEDS: docusate sodium 100mg/10ml UD cup OGT SCH (19:56)
[2019-10-06] MEDS: heparin, porcine 5000 units/ml vial SQ SCH (19:58)
[2019-10-06] MEDS: midazolam 100mg in NS 100ml 100 ML IV PRN (19:59)
[2019-10-06] MEDS: insulin glargine (Lantus) pen - multi-dose SQ SCH (20:11)
--- NOTE | 2019-10-06 23:04 | NUR ---
pts heart rate increased after being turned by RN and after suctioning. pt becomes easily agitated with high anxiety Addendum: 10/06/19 at 2306 by Sharon [address]shaw RT Amended: Links added.
[2019-10-07] VITALS (24 sets, daily range): BP systolic 96–147; BP diastolic 52–86
[2019-10-07] MEDS: cefepime 2g/NS 100ml ADVANTAGE 100 ML IV SCH ×3 (00:09→16:19)
[2019-10-07] MEDS: amiodarone/D5 360MG/200ML BAG 200 ML IV SCH ×4 (00:18→17:32)
[2019-10-07] MEDS: NORepinephrine 8mg/ 250ml NS 250 ML IV SCH ×6 (02:15→21:35)
[2019-10-07] MEDS: methylPREDNISolone sod succ 125mg/2ml vial IV SCH ×4 (02:19→19:34)
[2019-10-07] MEDS: mineral oil/petrolatum ophthal oint EACHEYE SCH ×4 (02:19→19:33)
[2019-10-07] MEDS: insulin regular, human vial - multi-dose SQ SCH ×4 (02:26→20:24)
[2019-10-07] MEDS: ipratropium/albuterol 3ml nebule NEB SCH ×6 (03:02→23:01)
[2019-10-07 03:05] LABS: ALANINE AMINOTRANSFERASE 38 U/L (12-78); ALBUMIN 1.8 G/DL (3.4-5.0); ALBUMIN/GLOBULIN RATIO 0.5 (1.1-1.5); ALKALINE PHOSPHATASE 86 IU/L (46-116); ANION GAP 3 (8-16); ASPARTATE AMINO TRANSFERASE 34 U/L (10-37); BILIRUBIN,TOTAL 0.6 MG/DL (0.1-1.0); BLOOD UREA NITROGEN 46 MG/DL (7-18); BUN/CREATININE RATIO 46.5 (5.4-32.0); CALCIUM 8.2 MG/DL (8.5-10.1); CHLORIDE 116 MMOL/L (99-107); CREATININE 0.99 MG/DL (0.60-1.10); GLUCOSE 191 MG/DL (70-104); MAGNESIUM 1.9 MG/DL (1.5-2.4); POTASSIUM 4.8 MMOL/L (3.5-5.1); SODIUM 151 MMOL/L (135-145); TOTAL CARBON DIOXIDE 31.7 MMOL/L (24-32); TOTAL PROTEIN 5.7 G/DL (6.4-8.2); eGFR 77 ML/MIN
[2019-10-07 03:08] LABS: BASOPHILS % (AUTO) 0 % (0-1); EOSINOPHILS % (AUTO) 0 % (0-6); HEMATOCRIT 30.9 % (42.0-52.0); HEMOGLOBIN 10.4 g/dl (14.0-17.9); LYMPHOCYTES # (AUTO) 0.3 X10'3 (1.1-4.8); LYMPHOCYTES % (AUTO) 2.2 % (21-51); MEAN CORPUSCULAR HEMOGLOBIN 30.2 PG (27.0-31.0); MEAN CORPUSCULAR HGB CONC 33.8 g/dL (33.0-36.5); MEAN CORPUSCULAR VOLUME 89.5 FL (78-98); MEAN PLATELET VOLUME 8.7 FL (7.4-10.4); MONOCYTES # (AUTO) 0.2 X10'3 (0-0.9); MONOCYTES % (AUTO) 2.1 % (2-12); NEUTROPHILS % (AUTO) 95.7 % (42-75); PLATELET COUNT 108 X10'3 (140-440); RED BLOOD COUNT 3.46 X10'6 (4.70-6.10); RED CELL DISTRIBUTION WIDTH 14.8 % (11.5-14.5); WHITE BLOOD COUNT 11.5 X10'3 (4.5-11.0)
[2019-10-07 03:31] LABS: ABG BASE EXCESS 3.8 mmol/L (-2.0-3.0); ABG HCO3 29.8 mmol/L (22.0-26.0); ABG OXYGEN SATURATION 94.8 % (95-98); ABG PCO2 (T) 53.9 mmHg (35.0-45.0); ABG PH (T) 7.365 (7.350-7.450); ABG PO2 (T) 81.6 mmHg (83-108); ALLEN'S TEST POSITIVE; FCOHb 0.3 % (0.5-1.5); FMetHb 0.1 % (0.3-1.12); FO2Hb 94.4 % (94-100); PATIENT TEMPERATURE 37.9; TIDAL VOLUME 500 mL; TOTAL HEMOGLOBIN 11.4 G/dl (14.0-17.9)
--- NOTE | 2019-10-07 05:55 | NUR ---
cxr called for possible left pneumo. artistic associate aylce notified. artistic associate at bedside
[2019-10-07] MEDS: lactobacillus rhamnosus 10,000 MMU CELLS/CAPSULE OGT SCH ×2 (07:03→19:34)
[2019-10-07] MEDS: oseltamivir phos 75mg capsule PO SCH ×2 (07:03→19:34)
[2019-10-07] MEDS: docusate sodium 100mg/10ml UD cup OGT SCH ×2 (07:03→19:33)
[2019-10-07] MEDS: heparin, porcine 5000 units/ml vial SQ SCH ×2 (07:03→19:37)
[2019-10-07] MEDS: pantoprazole 40 MG vial IV SCH (07:07)
[2019-10-07] MEDS: azithromycin/NS 500mg/250ml 250 ML IV SCH (07:25)
[2019-10-07] MEDS: K and/or MAG REPLACEMENT MC SCH ×2 (08:00→20:00)
[2019-10-07] MEDS ORDERED: pantoprazole 40 MG vial IV SCH (08:00)
[2019-10-07] MEDS: midazolam 100mg in NS 100ml 100 ML IV PRN (08:44)
[2019-10-07] MEDS: diltiazem-NS 100mg/100ml 100 ML IV SCH (14:40)
--- NOTE | 2019-10-07 18:24 | NUR ---
Patient in room CICU 2013. I have received report and had the opportunity to ask questions and assume patient care.
[2019-10-07] MEDS: insulin glargine (Lantus) pen - multi-dose SQ SCH (20:25)
[2019-10-08] VITALS (23 sets, daily range): BP systolic 101–160; BP diastolic 49–71
[2019-10-08] MEDS: cefepime 2g/NS 100ml ADVANTAGE 100 ML IV SCH ×3 (00:19→15:32)
[2019-10-08] MEDS: amiodarone/D5 360MG/200ML BAG 200 ML IV SCH ×4 (00:34→17:53)
[2019-10-08] MEDS: NORepinephrine 8mg/ 250ml NS 250 ML IV SCH (01:27)
[2019-10-08] MEDS: methylPREDNISolone sod succ 125mg/2ml vial IV SCH ×4 (02:09→20:44)
[2019-10-08] MEDS: mineral oil/petrolatum ophthal oint EACHEYE SCH ×4 (02:09→20:44)
[2019-10-08] MEDS: insulin regular, human vial - multi-dose SQ SCH ×4 (02:12→20:56)
[2019-10-08 02:54] LABS: BASOPHILS % (AUTO) 0 % (0-1); EOSINOPHILS % (AUTO) 0 % (0-6); HEMATOCRIT 31.2 % (42.0-52.0); HEMOGLOBIN 10.2 g/dl (14.0-17.9); LYMPHOCYTES # (AUTO) 0.3 X10'3 (1.1-4.8); LYMPHOCYTES % (AUTO) 2.1 % (21-51); MEAN CORPUSCULAR HEMOGLOBIN 29.7 PG (27.0-31.0); MEAN CORPUSCULAR HGB CONC 32.7 g/dL (33.0-36.5); MEAN CORPUSCULAR VOLUME 90.7 FL (78-98); MEAN PLATELET VOLUME 8.9 FL (7.4-10.4); MONOCYTES # (AUTO) 0.3 X10'3 (0-0.9); NEUTROPHILS # (AUTO) 14.3 X10'3 (1.8-7.7); NEUTROPHILS % (AUTO) 95.9 % (42-75); PLATELET COUNT 128 X10'3 (140-440); RED BLOOD COUNT 3.44 X10'6 (4.70-6.10); WHITE BLOOD COUNT 14.9 X10'3 (4.5-11.0)
[2019-10-08] MEDS: ipratropium/albuterol 3ml nebule NEB SCH ×6 (02:59→23:14)
[2019-10-08 03:12] LABS: ALANINE AMINOTRANSFERASE 51 U/L (12-78); ALBUMIN 1.9 G/DL (3.4-5.0); ALBUMIN/GLOBULIN RATIO 0.5 (1.1-1.5); ALKALINE PHOSPHATASE 119 IU/L (46-116); ANION GAP 6 (8-16); ASPARTATE AMINO TRANSFERASE 48 U/L (10-37); BILIRUBIN,TOTAL 0.6 MG/DL (0.1-1.0); BLOOD UREA NITROGEN 49 MG/DL (7-18); BUN/CREATININE RATIO 58.3 (5.4-32.0); CALCIUM 8.2 MG/DL (8.5-10.1); CHLORIDE 116 MMOL/L (99-107); CREATININE 0.84 MG/DL (0.60-1.10); GLUCOSE 93 MG/DL (70-104); POTASSIUM 4.5 MMOL/L (3.5-5.1); SODIUM 153 MMOL/L (135-145); TOTAL CARBON DIOXIDE 30.9 MMOL/L (24-32); TOTAL PROTEIN 5.6 G/DL (6.4-8.2); eGFR > 90 ML/MIN
[2019-10-08 03:45] LABS: ABG BASE EXCESS 7.2 mmol/L (-2.0-3.0); ABG HCO3 33.6 mmol/L (22.0-26.0); ABG OXYGEN SATURATION 94.6 % (95-98); ABG PCO2 (T) 60.2 mmHg (35.0-45.0); ABG PH (T) 7.369 (7.350-7.450); ABG PO2 (T) 78.1 mmHg (83-108); FCOHb 0.3 % (0.5-1.5); FO2Hb 94.3 % (94-100); PATIENT TEMPERATURE 37.9; PEEP 5 cm H2O; RESPIRATORY RATE 12 b/min; TIDAL VOLUME 500 mL; TOTAL HEMOGLOBIN 10.4 G/dl (14.0-17.9)
[2019-10-08] MEDS: K and/or MAG REPLACEMENT MC SCH ×2 (06:57→20:00)
[2019-10-08 07:02] LABS: MAGNESIUM 1.7 MG/DL (1.5-2.4)
[2019-10-08] MEDS: pantoprazole 40 MG vial IV SCH (07:35)
[2019-10-08] MEDS: docusate sodium 100mg/10ml UD cup OGT SCH ×2 (07:35→20:44)
[2019-10-08] MEDS: lactobacillus rhamnosus 10,000 MMU CELLS/CAPSULE OGT SCH ×2 (07:35→20:44)
[2019-10-08] MEDS: oseltamivir phos 75mg capsule PO SCH ×2 (07:36→20:44)
[2019-10-08] MEDS: heparin, porcine 5000 units/ml vial SQ SCH ×2 (07:36→20:44)
[2019-10-08] MEDS: azithromycin/NS 500mg/250ml 250 ML IV SCH (07:59)
[2019-10-08] MEDS: midazolam 100mg in NS 100ml 100 ML IV PRN ×3 (08:48→22:11)
[2019-10-08] MEDS: FENTANYL-0.9 % NACL/PF 100 ML IV PRN ×2 (08:49→17:29)
[2019-10-08] MEDS: dexmedetomidin/NS 400mcg/100ml 100 ML IV SCH (15:33)
--- NOTE | 2019-10-08 18:40 | NUR ---
Patient in room CICU 2013. I have received report from Sybil MONSALVE and had the opportunity to ask questions and assume patient care. Patient intubated and sedated, currently saturating at 94% on 40% FIO2 on A/C VC mode. HR in 60s in SR. No vasoactive drugs infusing at this time. Patient currently calm. Fentanyl, versed, and precedex infusing for sedation. Will continue to monitor patient closely.
[2019-10-08] MEDS: insulin glargine (Lantus) pen - multi-dose SQ SCH (20:56)
--- NOTE | 2019-10-08 22:00 | NUR ---
Patient bradycardic with HR in mid 40s. BP stable. Will titrate precedex down as tolerated.
[2019-10-09] VITALS (24 sets, daily range): BP systolic 107–152; BP diastolic 45–74
[2019-10-09] MEDS: cefepime 2g/NS 100ml ADVANTAGE 100 ML IV SCH ×3 (00:33→16:23)
[2019-10-09] MEDS: dexmedetomidin/NS 400mcg/100ml 100 ML IV SCH ×3 (00:34→21:28)
[2019-10-09] MEDS: amiodarone/D5 360MG/200ML BAG 200 ML IV SCH ×2 (00:50→04:49)
[2019-10-09] MEDS: methylPREDNISolone sod succ 125mg/2ml vial IV SCH ×4 (02:14→21:29)
[2019-10-09] MEDS: insulin regular, human vial - multi-dose SQ SCH ×3 (02:15→21:49)
[2019-10-09] MEDS: mineral oil/petrolatum ophthal oint EACHEYE SCH ×4 (02:15→20:00)
[2019-10-09 03:05] LABS: BASOPHILS % (AUTO) 0.1 % (0-1); EOSINOPHILS % (AUTO) 0 % (0-6); HEMATOCRIT 29.1 % (42.0-52.0); HEMOGLOBIN 9.9 g/dl (14.0-17.9); LYMPHOCYTES # (AUTO) 0.2 X10'3 (1.1-4.8); LYMPHOCYTES % (AUTO) 2.6 % (21-51); MEAN CORPUSCULAR HEMOGLOBIN 30.6 PG (27.0-31.0); MEAN CORPUSCULAR VOLUME 90.1 FL (78-98); MEAN PLATELET VOLUME 9.1 FL (7.4-10.4); MONOCYTES # (AUTO) 0.3 X10'3 (0-0.9); MONOCYTES % (AUTO) 2.7 % (2-12); NEUTROPHILS # (AUTO) 8.8 X10'3 (1.8-7.7); NEUTROPHILS % (AUTO) 94.6 % (42-75); PLATELET COUNT 117 X10'3 (140-440); RED BLOOD COUNT 3.23 X10'6 (4.70-6.10); RED CELL DISTRIBUTION WIDTH 14.9 % (11.5-14.5); WHITE BLOOD COUNT 9.3 X10'3 (4.5-11.0)
[2019-10-09] MEDS: ipratropium/albuterol 3ml nebule NEB SCH ×6 (03:16→23:20)
[2019-10-09 03:19] LABS: ALANINE AMINOTRANSFERASE 52 U/L (12-78); ALBUMIN 1.8 G/DL (3.4-5.0); ALBUMIN/GLOBULIN RATIO 0.5 (1.1-1.5); ALKALINE PHOSPHATASE 112 IU/L (46-116); ANION GAP 2 (8-16); ASPARTATE AMINO TRANSFERASE 34 U/L (10-37); BILIRUBIN,TOTAL 0.5 MG/DL (0.1-1.0); BLOOD UREA NITROGEN 46 MG/DL (7-18); BUN/CREATININE RATIO 60.5 (5.4-32.0); CALCIUM 7.8 MG/DL (8.5-10.1); CHLORIDE 112 MMOL/L (99-107); CREATININE 0.76 MG/DL (0.60-1.10); GLUCOSE 172 MG/DL (70-104); POTASSIUM 3.8 MMOL/L (3.5-5.1); SODIUM 148 MMOL/L (135-145); TOTAL CARBON DIOXIDE 34.2 MMOL/L (24-32); TOTAL PROTEIN 5.2 G/DL (6.4-8.2); eGFR > 90 ML/MIN
[2019-10-09 03:50] LABS: ABG BASE EXCESS 4.2 mmol/L (-2.0-3.0); ABG PH (T) 7.402 (7.350-7.450); FCOHb 0.1 % (0.5-1.5); FMetHb 0.1 % (0.3-1.12); FO2Hb 93.8 % (94-100); PATIENT TEMPERATURE 36.2; PEEP 5 cm H2O; RESPIRATORY RATE 12 b/min; TIDAL VOLUME 500 mL; TOTAL HEMOGLOBIN 10.7 G/dl (14.0-17.9)
[2019-10-09] MEDS: midazolam 100mg in NS 100ml 100 ML IV PRN ×3 (04:02→19:14)
--- NOTE | 2019-10-09 06:30 | NUR ---
Problems reprioritized. Patient report given, questions answered & plan of care reviewed with Sugey MONSALVE.
--- NOTE | 2019-10-09 06:30 | NUR ---
Patient in room CICU 2013. I have received report from Emir MONSALVE and had the opportunity to ask questions and assume patient care. Patient laying in bed with eyes closed, jean-baptiste to gravity, L chest tube to suction with 1130 in chamber, gtts infusing to R IJ, vital signs stable, no signs or symptoms of distress will continue to monitor
[2019-10-09] MEDS: K and/or MAG REPLACEMENT MC SCH ×2 (08:00→20:00)
[2019-10-09] MEDS: pantoprazole 40 MG vial IV SCH (08:48)
[2019-10-09] MEDS: lactobacillus rhamnosus 10,000 MMU CELLS/CAPSULE OGT SCH ×2 (08:48→21:28)
[2019-10-09] MEDS: azithromycin/NS 500mg/250ml 250 ML IV SCH (08:48)
[2019-10-09] MEDS: oseltamivir phos 75mg capsule PO SCH ×2 (08:49→21:28)
[2019-10-09] MEDS: heparin, porcine 5000 units/ml vial SQ SCH ×2 (08:49→21:29)
[2019-10-09] MEDS: docusate sodium 100mg/10ml UD cup OGT SCH ×2 (08:50→21:28)
[2019-10-09] MEDS ORDERED: amiodarone/D5 360MG/200ML BAG 200 ML IV SCH (09:16)
[2019-10-09 10:05] LABS: MAGNESIUM 1.6 MG/DL (1.5-2.4); PREALBUMIN 18.5 MG/DL (19-36)
[2019-10-09] MEDS ORDERED: metoclopramide 5 mg/ml inj IV PRN (11:10)
[2019-10-09] MEDS: amiodarone 200mg tablet PO SCH ×2 (11:31→21:28)
--- NOTE | 2019-10-09 15:11 | NUR ---
Reassessment: Patient intubated and sedated. Tube feedings tolerated at goal rate with gastric residuals within normal limits. Last bowel movement seven days ago, discussed at rounds. Sleep Technologist adding reglan. Patient receiving colace daily. Noted that sodium was elevated at 153 and today is down to 148 mg/dl, water flushes of 250 ml q 4 ordered by Sleep Technologist. Will continue to follow. Rec: 1. continuous TF with Vital AF at goal rate 70ml/hr to provide 2016 kcal, 126 g protein with 1360 ml free water and total volume of 1680 ml. 2. PALB q /; daily weights 3. routine bowel care 4. additional water flush 250 ml q 4 hours per Sleep Technologist Addendum: 10/09/19 at [address] Amended: Links added.
[2019-10-09] MEDS: FENTANYL-0.9 % NACL/PF 100 ML IV PRN ×2 (15:18→21:33)
[2019-10-09] MEDS: multivitamins, therapeutics tablet PO SCH ×2 (15:33→21:28)
--- NOTE | 2019-10-09 18:22 | NUR ---
Problems reprioritized. Patient report given, questions answered & plan of care reviewed with Emir MONSALVE.
--- NOTE | 2019-10-09 18:25 | NUR ---
Patient in room CICU 2013. I have received report from Sugey MONSALVE and had the opportunity to ask questions and assume patient care. Patient intubated and currently calm. Pt saturating at 94% on current ventilator settings. All other vital signs WNL at this time. Fentanyl and versed infusing per MD orders. Will continue to monitor patient closely.
[2019-10-09] MEDS: insulin glargine (Lantus) pen - multi-dose SQ SCH (21:50)
[2019-10-10] VITALS (24 sets, daily range): BP systolic 100–152; BP diastolic 46–90
[2019-10-10] MEDS: cefepime 2g/NS 100ml ADVANTAGE 100 ML IV SCH ×2 (00:25→08:15)
[2019-10-10] MEDS: insulin regular, human vial - multi-dose SQ SCH ×3 (02:33→20:56)
[2019-10-10] MEDS: mineral oil/petrolatum ophthal oint EACHEYE SCH ×4 (02:34→21:07)
[2019-10-10] MEDS: methylPREDNISolone sod succ 125mg/2ml vial IV SCH ×2 (02:34→08:15)
[2019-10-10] MEDS: multivitamins, therapeutics tablet PO SCH ×4 (02:34→20:47)
[2019-10-10 02:59] LABS: BASOPHILS % (AUTO) 0.1 % (0-1); EOSINOPHILS % (AUTO) 0 % (0-6); HEMOGLOBIN 10.3 g/dl (14.0-17.9); LYMPHOCYTES # (AUTO) 0.3 X10'3 (1.1-4.8); LYMPHOCYTES % (AUTO) 2.4 % (21-51); MEAN CORPUSCULAR HEMOGLOBIN 30.1 PG (27.0-31.0); MEAN CORPUSCULAR HGB CONC 33.2 g/dL (33.0-36.5); MEAN CORPUSCULAR VOLUME 90.4 FL (78-98); MEAN PLATELET VOLUME 9.6 FL (7.4-10.4); MONOCYTES # (AUTO) 0.4 X10'3 (0-0.9); MONOCYTES % (AUTO) 2.8 % (2-12); NEUTROPHILS # (AUTO) 12.1 X10'3 (1.8-7.7); NEUTROPHILS % (AUTO) 94.7 % (42-75); PLATELET COUNT 148 X10'3 (140-440); RED BLOOD COUNT 3.43 X10'6 (4.70-6.10); RED CELL DISTRIBUTION WIDTH 14.8 % (11.5-14.5); WHITE BLOOD COUNT 12.8 X10'3 (4.5-11.0)
[2019-10-10 03:08] LABS: ANION GAP 0 (8-16); BLOOD UREA NITROGEN 45 MG/DL (7-18); BUN/CREATININE RATIO 57.7 (5.4-32.0); CALCIUM 7.8 MG/DL (8.5-10.1); CHLORIDE 110 MMOL/L (99-107); CREATININE 0.78 MG/DL (0.60-1.10); GLUCOSE 114 MG/DL (70-104); POTASSIUM 4.4 MMOL/L (3.5-5.1); SODIUM 148 MMOL/L (135-145); TOTAL CARBON DIOXIDE 37.6 MMOL/L (24-32); eGFR > 90 ML/MIN
[2019-10-10 03:09] LABS: ALANINE AMINOTRANSFERASE 52 U/L (12-78); ALBUMIN 1.8 G/DL (3.4-5.0); ALBUMIN/GLOBULIN RATIO 0.5 (1.1-1.5); ALKALINE PHOSPHATASE 114 IU/L (46-116); ASPARTATE AMINO TRANSFERASE 30 U/L (10-37); BILIRUBIN,TOTAL 0.7 MG/DL (0.1-1.0); TOTAL PROTEIN 5.3 G/DL (6.4-8.2)
[2019-10-10] MEDS: ipratropium/albuterol 3ml nebule NEB SCH ×6 (03:16→23:35)
[2019-10-10 03:35] LABS: ABG HCO3 34.7 mmol/L (22.0-26.0); ABG OXYGEN SATURATION 92.2 % (95-98); ABG PCO2 (T) 59.1 mmHg (35.0-45.0); ABG PH (T) 7.385 (7.350-7.450); ABG PO2 (T) 62.5 mmHg (83-108); FCOHb 0.6 % (0.5-1.5); FMetHb 0.3 % (0.3-1.12); FO2Hb 91.4 % (94-100); PATIENT TEMPERATURE 36.6; PEEP 5 cm H2O; RESPIRATORY RATE 12 b/min; TIDAL VOLUME 500 mL; TOTAL HEMOGLOBIN 10.7 G/dl (14.0-17.9)
[2019-10-10] MEDS: FENTANYL-0.9 % NACL/PF 100 ML IV PRN ×4 (03:53→21:19)
[2019-10-10] MEDS: dexmedetomidin/NS 400mcg/100ml 100 ML IV SCH ×3 (05:14→21:19)
--- NOTE | 2019-10-10 06:27 | NUR ---
Problems reprioritized. Patient report given, questions answered & plan of care reviewed with Sugey MONSALVE.
[2019-10-10] MEDS: dextrose 50%-water 50ml dispensing syringe IV PRN (08:07)
[2019-10-10] MEDS: oseltamivir phos 75mg capsule PO SCH ×2 (08:15→20:47)
[2019-10-10] MEDS: pantoprazole 40 MG vial IV SCH (08:15)
[2019-10-10] MEDS: lactobacillus rhamnosus 10,000 MMU CELLS/CAPSULE OGT SCH ×2 (08:15→20:47)
[2019-10-10] MEDS: amiodarone 200mg tablet PO SCH ×2 (08:15→20:47)
[2019-10-10] MEDS: docusate sodium 100mg/10ml UD cup OGT SCH ×2 (08:15→20:47)
[2019-10-10] MEDS: heparin, porcine 5000 units/ml vial SQ SCH ×2 (08:16→20:48)
[2019-10-10] MEDS: K and/or MAG REPLACEMENT MC SCH ×2 (08:17→20:00)
--- NOTE | 2019-10-10 09:11 | NUR ---
Patient in room CICU 2013. I have received report from Emir MONSALVE and had the opportunity to ask questions and assume patient care. Patient laying in bed with eyes closed, jean-baptiste to gravity, patient on ventilator sating 94%, fio2 35% peep of 5, fentanyl, versed and precedex infusing, tube feed at goal rate of 70. Vital signs stable no signs or symptoms of distress will continue to monitor
[2019-10-10] MEDS: midazolam 100mg in NS 100ml 100 ML IV PRN ×2 (10:39→18:49)
[2019-10-10] MEDS: methylPREDNISolone sod succ/PF 40mg inj. IV SCH ×2 (13:49→20:55)
[2019-10-10] MEDS: CEFEPIME 2gm in D5W 50mL 50 ML IV SCH (16:00)
--- NOTE | 2019-10-10 18:09 | NUR ---
Problems reprioritized. Patient report given, questions answered & plan of care reviewed with Emir MONSALVE.
--- NOTE | 2019-10-10 18:20 | NUR ---
Patient in room CICU 2013. I have received report from Sugey MONSALVE and had the opportunity to ask questions and assume patient care. Patient currently calm and sedated, saturating at 93% on current ventilator settings. Fentanyl/versed/precedex infusing for sedation. Chest tube in place and draining well. Will continue to monitor patient closely.
[2019-10-10] MEDS: insulin glargine (Lantus) pen - multi-dose SQ SCH (20:57)
[2019-10-11] VITALS (23 sets, daily range): BP systolic 101–158; BP diastolic 44–95
[2019-10-11] MEDS: CEFEPIME 2gm in D5W 50mL 50 ML IV SCH ×3 (00:42→17:08)
[2019-10-11] MEDS: midazolam 100mg in NS 100ml 100 ML IV PRN ×4 (01:32→19:51)
[2019-10-11] MEDS: FENTANYL-0.9 % NACL/PF 100 ML IV PRN ×4 (02:13→19:48)
[2019-10-11] MEDS: methylPREDNISolone sod succ/PF 40mg inj. IV SCH ×4 (02:15→20:55)
[2019-10-11] MEDS: mineral oil/petrolatum ophthal oint EACHEYE SCH ×4 (02:15→20:54)
[2019-10-11] MEDS: multivitamins, therapeutics tablet PO SCH ×4 (02:15→20:57)
[2019-10-11 02:30] LABS: BASOPHILS % (AUTO) 0.1 % (0-1); EOSINOPHILS % (AUTO) 0 % (0-6); HEMATOCRIT 29.2 % (42.0-52.0); HEMOGLOBIN 9.8 g/dl (14.0-17.9); LYMPHOCYTES # (AUTO) 0.2 X10'3 (1.1-4.8); LYMPHOCYTES % (AUTO) 1.4 % (21-51); MEAN CORPUSCULAR HEMOGLOBIN 30.1 PG (27.0-31.0); MEAN CORPUSCULAR HGB CONC 33.5 g/dL (33.0-36.5); MEAN CORPUSCULAR VOLUME 89.8 FL (78-98); MEAN PLATELET VOLUME 9.3 FL (7.4-10.4); MONOCYTES # (AUTO) 0.4 X10'3 (0-0.9); MONOCYTES % (AUTO) 3.1 % (2-12); NEUTROPHILS % (AUTO) 95.4 % (42-75); PLATELET COUNT 169 X10'3 (140-440); RED BLOOD COUNT 3.25 X10'6 (4.70-6.10); RED CELL DISTRIBUTION WIDTH 14.6 % (11.5-14.5); WHITE BLOOD COUNT 13.6 X10'3 (4.5-11.0)
[2019-10-11 02:41] LABS: ALANINE AMINOTRANSFERASE 43 U/L (12-78); ALBUMIN 1.7 G/DL (3.4-5.0); ALBUMIN/GLOBULIN RATIO 0.6 (1.1-1.5); ALKALINE PHOSPHATASE 95 IU/L (46-116); ANION GAP 3 (8-16); ASPARTATE AMINO TRANSFERASE 25 U/L (10-37); BILIRUBIN,TOTAL 0.5 MG/DL (0.1-1.0); BLOOD UREA NITROGEN 41 MG/DL (7-18); BUN/CREATININE RATIO 59.4 (5.4-32.0); CALCIUM 7.5 MG/DL (8.5-10.1); CHLORIDE 109 MMOL/L (99-107); CREATININE 0.69 MG/DL (0.60-1.10); GLUCOSE 83 MG/DL (70-104); SODIUM 146 MMOL/L (135-145); TOTAL CARBON DIOXIDE 34.3 MMOL/L (24-32); TOTAL PROTEIN 4.7 G/DL (6.4-8.2); eGFR > 90 ML/MIN
[2019-10-11] MEDS: ipratropium/albuterol 3ml nebule NEB SCH ×6 (03:13→23:08)
[2019-10-11] MEDS: dexmedetomidin/NS 400mcg/100ml 100 ML IV SCH ×4 (03:17→20:53)
[2019-10-11 05:30] LABS: ABG HCO3 33.1 mmol/L (22.0-26.0); ABG OXYGEN SATURATION 93.9 % (95-98); ABG PH (T) 7.391 (7.350-7.450); ABG PO2 (T) 72.9 mmHg (83-108); ALLEN'S TEST POSITIVE; FMetHb 0.2 % (0.3-1.12); FO2Hb 93.7 % (94-100); PATIENT TEMPERATURE 37.2; PEEP 5 cm H2O; RESPIRATORY RATE 12 b/min; TIDAL VOLUME 500 mL; TOTAL HEMOGLOBIN 10.6 G/dl (14.0-17.9)
--- NOTE | 2019-10-11 06:39 | NUR ---
Problems reprioritized. Patient report given, questions answered & plan of care reviewed with Grey MONSALVE.
--- NOTE | 2019-10-11 07:52 | NUR ---
PT DID NOT TOLERATE SUCTIONING VERY WELL. PT GETS SUPER AGITATED, HR INCREASED TO 120'S. NURSE MADE AWARE. Addendum: 10/11/19 at 0754 by Juany Johnson RT Amended: Links added.
[2019-10-11] MEDS: K and/or MAG REPLACEMENT MC SCH ×2 (08:00→20:00)
[2019-10-11] MEDS ORDERED: furosemide 40mg/4ml inj IV ONE (08:30)
[2019-10-11] MEDS: heparin, porcine 5000 units/ml vial SQ SCH ×2 (08:51→20:57)
[2019-10-11] MEDS: amiodarone 200mg tablet PO SCH ×2 (08:51→20:57)
[2019-10-11] MEDS: pantoprazole 40 MG vial IV SCH (08:51)
[2019-10-11] MEDS: lactobacillus rhamnosus 10,000 MMU CELLS/CAPSULE OGT SCH ×2 (08:52→20:56)
[2019-10-11] MEDS: oseltamivir phos 75mg capsule PO SCH ×2 (08:53→20:57)
[2019-10-11] MEDS: insulin regular, human vial - multi-dose SQ SCH ×2 (08:55→21:04)
[2019-10-11] MEDS: docusate sodium 100mg/10ml UD cup OGT SCH ×2 (08:57→20:56)
--- NOTE | 2019-10-11 18:30 | NUR ---
Patient in room CICU 2013. I have received report from Ema MONSALVE and had the opportunity to ask questions and assume patient care.
--- NOTE | 2019-10-11 18:33 | NUR ---
Problems reprioritized. Patient report given, questions answered & plan of care reviewed with Kimberlee MONSALVE.
--- NOTE | 2019-10-11 18:34 | NUR ---
Problems reprioritized. Patient report given, questions answered & plan of care reviewed with Kimberlee MONSALVE.
[2019-10-11] MEDS: furosemide 40mg/4ml inj IV SCH (20:54)
[2019-10-11] MEDS: insulin glargine (Lantus) pen - multi-dose SQ SCH (21:03)
[2019-10-11] MEDS ORDERED: ziprasidone IM 20mg inj **IM only IM ONE (21:15)
[2019-10-12] VITALS (24 sets, daily range): BP systolic 88–163; BP diastolic 40–98
[2019-10-12] MEDS: CEFEPIME 2gm in D5W 50mL 50 ML IV SCH ×2 (00:20→09:42)
[2019-10-12] MEDS: mineral oil/petrolatum ophthal oint EACHEYE SCH ×4 (01:45→19:50)
[2019-10-12] MEDS: methylPREDNISolone sod succ/PF 40mg inj. IV SCH ×4 (01:45→19:51)
[2019-10-12] MEDS: dexmedetomidin/NS 400mcg/100ml 100 ML IV SCH ×3 (01:45→18:53)
[2019-10-12] MEDS: insulin regular, human vial - multi-dose SQ SCH ×3 (01:57→20:24)
[2019-10-12] MEDS: multivitamins, therapeutics tablet PO SCH ×4 (02:00→19:50)
[2019-10-12 02:29] LABS: BASOPHILS % (AUTO) 0.1 % (0-1); EOSINOPHILS % (AUTO) 0 % (0-6); HEMATOCRIT 31.9 % (42.0-52.0); HEMOGLOBIN 10.8 g/dl (14.0-17.9); LYMPHOCYTES # (AUTO) 0.4 X10'3 (1.1-4.8); LYMPHOCYTES % (AUTO) 1.9 % (21-51); MEAN CORPUSCULAR HEMOGLOBIN 30.2 PG (27.0-31.0); MEAN CORPUSCULAR HGB CONC 33.7 g/dL (33.0-36.5); MEAN CORPUSCULAR VOLUME 89.5 FL (78-98); MEAN PLATELET VOLUME 8.7 FL (7.4-10.4); MONOCYTES # (AUTO) 0.9 X10'3 (0-0.9); MONOCYTES % (AUTO) 4.6 % (2-12); NEUTROPHILS # (AUTO) 17.8 X10'3 (1.8-7.7); NEUTROPHILS % (AUTO) 93.4 % (42-75); PLATELET COUNT 223 X10'3 (140-440); RED BLOOD COUNT 3.56 X10'6 (4.70-6.10); RED CELL DISTRIBUTION WIDTH 14.5 % (11.5-14.5)
[2019-10-12 02:45] LABS: ALANINE AMINOTRANSFERASE 50 U/L (12-78); ALBUMIN 1.9 G/DL (3.4-5.0); ALBUMIN/GLOBULIN RATIO 0.5 (1.1-1.5); ALKALINE PHOSPHATASE 108 IU/L (46-116); ANION GAP 1 (8-16); ASPARTATE AMINO TRANSFERASE 34 U/L (10-37); BILIRUBIN,TOTAL 0.6 MG/DL (0.1-1.0); BLOOD UREA NITROGEN 40 MG/DL (7-18); BUN/CREATININE RATIO 54.1 (5.4-32.0); CALCIUM 7.5 MG/DL (8.5-10.1); CHLORIDE 105 MMOL/L (99-107); CREATININE 0.74 MG/DL (0.60-1.10); GLUCOSE 95 MG/DL (70-104); MAGNESIUM 1.5 MG/DL (1.5-2.4); PHOSPHORUS 2.3 MG/DL (2.3-4.5); POTASSIUM 3.4 MMOL/L (3.5-5.1); PREALBUMIN 22.5 MG/DL (19-36); SODIUM 143 MMOL/L (135-145); TOTAL CARBON DIOXIDE 36.6 MMOL/L (24-32); TOTAL PROTEIN 5.4 G/DL (6.4-8.2); eGFR > 90 ML/MIN
[2019-10-12] MEDS: ipratropium/albuterol 3ml nebule NEB SCH ×6 (03:28→22:32)
[2019-10-12] MEDS: FENTANYL-0.9 % NACL/PF 100 ML IV PRN ×2 (03:38→18:54)
[2019-10-12] MEDS: midazolam 100mg in NS 100ml 100 ML IV PRN ×3 (03:39→19:01)
[2019-10-12 03:51] LABS: ABG BASE EXCESS 11.8 mmol/L (-2.0-3.0); ABG HCO3 35.2 mmol/L (22.0-26.0); ABG OXYGEN SATURATION 97.2 % (95-98); ABG PCO2 (T) 41.4 mmHg (35.0-45.0); ABG PH (T) 7.548 (7.350-7.450); ABG PO2 (T) 86.4 mmHg (83-108); ALLEN'S TEST POSITIVE; FCOHb 0.3 % (0.5-1.5); FO2Hb 96.9 % (94-100); PEEP 5 cm H2O; RESPIRATORY RATE 12 b/min; TIDAL VOLUME 500 mL; TOTAL HEMOGLOBIN 11.5 G/dl (14.0-17.9)
--- NOTE | 2019-10-12 06:41 | NUR ---
Problems reprioritized. Patient report given, questions answered & plan of care reviewed with Ema MONSALVE.
[2019-10-12] MEDS: amiodarone 200mg tablet PO SCH (08:00)
[2019-10-12] MEDS: docusate sodium 100mg/10ml UD cup OGT SCH ×2 (08:00→19:50)
[2019-10-12] MEDS: K and/or MAG REPLACEMENT MC SCH ×2 (08:00→20:00)
[2019-10-12] MEDS: methylnaltrexone br 12mg/0.6ml inj***SubQ only SQ SCH (09:40)
[2019-10-12] MEDS: oseltamivir phos 75mg capsule PO SCH (09:45)
[2019-10-12] MEDS: furosemide 40mg/4ml inj IV SCH ×2 (09:45→19:51)
[2019-10-12] MEDS: pantoprazole 40 MG vial IV SCH (09:45)
[2019-10-12] MEDS: heparin, porcine 5000 units/ml vial SQ SCH ×2 (09:47→19:51)
[2019-10-12] MEDS: lactobacillus rhamnosus 10,000 MMU CELLS/CAPSULE OGT SCH ×2 (09:51→19:50)
[2019-10-12] MEDS ORDERED: magnesium 2GM in 50ml NS 50 ML IV PRN (10:05)
[2019-10-12] MEDS ORDERED: potassium Cl 20 mEq SR tablet PO PRN ×2 (10:05)
[2019-10-12] MEDS ORDERED: magnesium Cl slow-release 64mg tablet PO PRN (10:05)
[2019-10-12] MEDS ORDERED: magnesium 4gm in 100ml NS 100 ML IV PRN (10:05)
[2019-10-12] MEDS ORDERED: POTASSIUM BICARB 20meq eff tab 20 MEQ TABLET.EFF PO PRN (12:01)
[2019-10-12] MEDS ORDERED: POTASSIUM BICARB 20meq eff tab 20 MEQ TABLET.EFF OGT PRN (12:02)
--- NOTE | 2019-10-12 15:47 | NUR ---
Reassessment: Pt remains intubated but is now off of sedation per bedside RN at critical care rounds. Tube feedings tolerated at goal rate with gastric residuals WNL. Pt currently diuresing with lasix with potassium replacement. Sodium now WNL. LBM 10/02, discussed at rounds and relistor was added to pt med list and pt with routine colace BID. Will continue to monitor. Rec: 1. continuous TF with Vital AF at goal rate 70ml/hr to provide 2016 kcal, 126 g protein with 1360 ml free water and total volume of 1680 ml. 2. PALB q /; daily weights 3. routine bowel care; opiate antagonist per MD 4. additional water flush 250 ml q 4 hours per Can Line Operator Addendum: 10/12/19 at 1548 by Wing Santa MULLINS Amended: Links added. Addendum: 10/12/19 at [address] HARPREET Wheatves
[2019-10-12] MEDS: POTASSIUM BICARB 20meq eff tab 20 MEQ TABLET.EFF OGT PRN ×2 (17:06→22:28)
[2019-10-12] MEDS: thiamine 100mg tablet OGT SCH (17:06)
[2019-10-12] MEDS: folic acid 1mg tablet OGT SCH (17:07)
[2019-10-12] MEDS: propofol 1000mg/100ml bottle 100 ML IV SCH (17:07)
[2019-10-12] MEDS: cefepime 2g/NS 100ml ADVANTAGE 100 ML IV SCH (17:33)
--- NOTE | 2019-10-12 18:47 | NUR ---
gave report to zia wu
[2019-10-12] MEDS: amiodarone 200mg tablet OGT SCH (19:50)
[2019-10-12] MEDS: insulin glargine (Lantus) pen - multi-dose SQ SCH (20:25)
[2019-10-13] VITALS (24 sets, daily range): BP systolic 82–152; BP diastolic 36–82
[2019-10-13] MEDS: propofol 1000mg/100ml bottle 100 ML IV SCH ×3 (00:41→19:21)
[2019-10-13] MEDS: cefepime 2g/NS 100ml ADVANTAGE 100 ML IV SCH ×4 (01:00→23:50)
[2019-10-13] MEDS: dexmedetomidin/NS 400mcg/100ml 100 ML IV SCH ×3 (01:55→18:24)
[2019-10-13] MEDS: dextrose 50%-water 50ml dispensing syringe IV PRN (02:08)
[2019-10-13] MEDS: methylPREDNISolone sod succ/PF 40mg inj. IV SCH ×4 (02:11→19:58)
[2019-10-13] MEDS: multivitamins, therapeutics tablet PO SCH ×4 (02:11→19:59)
[2019-10-13] MEDS: mineral oil/petrolatum ophthal oint EACHEYE SCH ×4 (02:11→19:54)
[2019-10-13] MEDS: insulin regular, human vial - multi-dose SQ SCH ×4 (02:41→20:08)
[2019-10-13] MEDS: ipratropium/albuterol 3ml nebule NEB SCH ×6 (02:55→23:18)
[2019-10-13 04:12] LABS: BASOPHILS % (AUTO) 0.1 % (0-1); EOSINOPHILS % (AUTO) 0 % (0-6); HEMATOCRIT 28.6 % (42.0-52.0); HEMOGLOBIN 9.4 g/dl (14.0-17.9); LYMPHOCYTES # (AUTO) 0.2 X10'3 (1.1-4.8); LYMPHOCYTES % (AUTO) 1.5 % (21-51); MEAN CORPUSCULAR HGB CONC 32.7 g/dL (33.0-36.5); MEAN CORPUSCULAR VOLUME 88.5 FL (78-98); MEAN PLATELET VOLUME 8.4 FL (7.4-10.4); MONOCYTES # (AUTO) 0.7 X10'3 (0-0.9); MONOCYTES % (AUTO) 4.5 % (2-12); NEUTROPHILS # (AUTO) 14.1 X10'3 (1.8-7.7); NEUTROPHILS % (AUTO) 93.9 % (42-75); PLATELET COUNT 239 X10'3 (140-440); RED BLOOD COUNT 3.24 X10'6 (4.70-6.10); RED CELL DISTRIBUTION WIDTH 14.4 % (11.5-14.5)
[2019-10-13] MEDS: midazolam 100mg in NS 100ml 100 ML IV PRN (04:25)
[2019-10-13 04:29] LABS: ALANINE AMINOTRANSFERASE 50 U/L (12-78); ALBUMIN 1.8 G/DL (3.4-5.0); ALBUMIN/GLOBULIN RATIO 0.6 (1.1-1.5); ALKALINE PHOSPHATASE 92 IU/L (46-116); ANION GAP 1 (8-16); ASPARTATE AMINO TRANSFERASE 34 U/L (10-37); BILIRUBIN,TOTAL 0.4 MG/DL (0.1-1.0); BLOOD UREA NITROGEN 41 MG/DL (7-18); BUN/CREATININE RATIO 66.1 (5.4-32.0); CALCIUM 7.5 MG/DL (8.5-10.1); CHLORIDE 104 MMOL/L (99-107); CREATININE 0.62 MG/DL (0.60-1.10); GLUCOSE 82 MG/DL (70-104); MAGNESIUM 1.6 MG/DL (1.5-2.4); POTASSIUM 3.5 MMOL/L (3.5-5.1); SODIUM 146 MMOL/L (135-145); TOTAL PROTEIN 4.8 G/DL (6.4-8.2); TRIGLYCERIDES 92 MG/DL (20-135); eGFR > 90 ML/MIN
[2019-10-13 04:32] LABS: TOTAL CARBON DIOXIDE 41.2 MMOL/L (24-32)
[2019-10-13 04:41] LABS: ABG BASE EXCESS 5.1 mmol/L (-2.0-3.0); ABG HCO3 28.7 mmol/L (22.0-26.0); ABG PCO2 (T) 38.3 mmHg (35.0-45.0); ABG PH (T) 7.492 (7.350-7.450); ABG PO2 (T) 69.2 mmHg (83-108); ALLEN'S TEST POSITIVE; FCOHb 0.3 % (0.5-1.5); FMetHb 0.1 % (0.3-1.12); FO2Hb 93.6 % (94-100); PATIENT TEMPERATURE 36.9; RESPIRATORY RATE 12 b/min; TIDAL VOLUME 500 mL; TOTAL HEMOGLOBIN 11.2 G/dl (14.0-17.9)
[2019-10-13] MEDS: FENTANYL-0.9 % NACL/PF 100 ML IV PRN ×2 (05:59→18:25)
--- NOTE | 2019-10-13 06:56 | NUR ---
received report from zia wu
[2019-10-13] MEDS: pantoprazole 40 MG vial IV SCH (07:55)
[2019-10-13] MEDS: docusate sodium 100mg/10ml UD cup OGT SCH ×2 (07:55→19:58)
[2019-10-13] MEDS: lactobacillus rhamnosus 10,000 MMU CELLS/CAPSULE OGT SCH ×2 (07:56→19:58)
[2019-10-13] MEDS: folic acid 1mg tablet OGT SCH (07:56)
[2019-10-13] MEDS: POTASSIUM BICARB 20meq eff tab 20 MEQ TABLET.EFF OGT PRN (07:56)
[2019-10-13] MEDS: thiamine 100mg tablet OGT SCH (07:56)
[2019-10-13] MEDS: amiodarone 200mg tablet OGT SCH ×2 (07:56→19:58)
[2019-10-13] MEDS: K and/or MAG REPLACEMENT MC SCH ×3 (08:00→20:00)
[2019-10-13] MEDS: heparin, porcine 5000 units/ml vial SQ SCH ×2 (08:17→20:09)
[2019-10-13] MEDS: furosemide 40mg/4ml inj IV SCH ×2 (08:26→20:09)
--- NOTE | 2019-10-13 09:19 | NUR ---
risperadone 2mg once dose ordered per DR MYERS in order to address patients extreme agitation despite sedation efforts
[2019-10-13] MEDS ORDERED: risperiDONE 2mg tablet PO ONE (09:20)
--- NOTE | 2019-10-13 12:25 | NUR ---
pt. vent alarming low peak pressure. breath stacking noted on prvc. changed to vc. orders are appropriate Addendum: 10/13/19 at 1225 by Severino Reeves RT Amended: Links added.
--- NOTE | 2019-10-13 18:19 | NUR ---
report given to zia MONSALVE
[2019-10-13] MEDS: insulin glargine (Lantus) pen - multi-dose SQ SCH (20:06)
[2019-10-14] VITALS (24 sets, daily range): BP systolic 85–144; BP diastolic 47–75
[2019-10-14] MEDS: dexmedetomidin/NS 400mcg/100ml 100 ML IV SCH ×2 (01:35→16:34)
[2019-10-14 02:32] LABS: BASOPHILS % (AUTO) 0 % (0-1); EOSINOPHILS % (AUTO) 0 % (0-6); HEMATOCRIT 30.5 % (42.0-52.0); HEMOGLOBIN 10.2 g/dl (14.0-17.9); LYMPHOCYTES # (AUTO) 0.2 X10'3 (1.1-4.8); LYMPHOCYTES % (AUTO) 1.7 % (21-51); MEAN CORPUSCULAR HEMOGLOBIN 29.6 PG (27.0-31.0); MEAN CORPUSCULAR HGB CONC 33.4 g/dL (33.0-36.5); MEAN CORPUSCULAR VOLUME 88.6 FL (78-98); MEAN PLATELET VOLUME 8.2 FL (7.4-10.4); MONOCYTES # (AUTO) 0.7 X10'3 (0-0.9); MONOCYTES % (AUTO) 5.7 % (2-12); NEUTROPHILS # (AUTO) 11.8 X10'3 (1.8-7.7); NEUTROPHILS % (AUTO) 92.6 % (42-75); PLATELET COUNT 288 X10'3 (140-440); RED BLOOD COUNT 3.44 X10'6 (4.70-6.10); RED CELL DISTRIBUTION WIDTH 14.4 % (11.5-14.5); WHITE BLOOD COUNT 12.7 X10'3 (4.5-11.0)
[2019-10-14] MEDS: insulin regular, human vial - multi-dose SQ SCH ×4 (02:35→19:52)
[2019-10-14] MEDS: propofol 1000mg/100ml bottle 100 ML IV SCH ×3 (02:36→13:52)
[2019-10-14] MEDS: multivitamins, therapeutics tablet PO SCH ×4 (02:39→19:59)
[2019-10-14] MEDS: mineral oil/petrolatum ophthal oint EACHEYE SCH ×4 (02:40→20:29)
[2019-10-14] MEDS: methylPREDNISolone sod succ/PF 40mg inj. IV SCH ×4 (02:40→20:01)
[2019-10-14 02:41] LABS: ALANINE AMINOTRANSFERASE 50 U/L (12-78); ALBUMIN 1.9 G/DL (3.4-5.0); ALBUMIN/GLOBULIN RATIO 0.5 (1.1-1.5); ALKALINE PHOSPHATASE 98 IU/L (46-116); ANION GAP 0 (8-16); ASPARTATE AMINO TRANSFERASE 28 U/L (10-37); BILIRUBIN,TOTAL 0.4 MG/DL (0.1-1.0); BLOOD UREA NITROGEN 36 MG/DL (7-18); BUN/CREATININE RATIO 52.9 (5.4-32.0); CALCIUM 7.7 MG/DL (8.5-10.1); CHLORIDE 103 MMOL/L (99-107); CREATININE 0.68 MG/DL (0.60-1.10); GLUCOSE 129 MG/DL (70-104); MAGNESIUM 1.9 MG/DL (1.5-2.4); POTASSIUM 4.1 MMOL/L (3.5-5.1); SODIUM 144 MMOL/L (135-145); TOTAL PROTEIN 5.4 G/DL (6.4-8.2); eGFR > 90 ML/MIN
[2019-10-14 02:45] LABS: TOTAL CARBON DIOXIDE 40.8 MMOL/L (24-32)
[2019-10-14] MEDS: ipratropium/albuterol 3ml nebule NEB SCH ×6 (04:42→22:55)
[2019-10-14] MEDS: FENTANYL-0.9 % NACL/PF 100 ML IV PRN ×2 (06:16→16:35)
[2019-10-14] MEDS: midazolam 100mg in NS 100ml 100 ML IV PRN (06:48)
[2019-10-14] MEDS: K and/or MAG REPLACEMENT MC SCH ×3 (08:00→20:29)
[2019-10-14] MEDS: furosemide 40mg/4ml inj IV SCH ×2 (09:07→19:59)
[2019-10-14] MEDS: thiamine 100mg tablet OGT SCH (09:09)
[2019-10-14] MEDS: amiodarone 200mg tablet OGT SCH ×2 (09:09→19:59)
[2019-10-14] MEDS: heparin, porcine 5000 units/ml vial SQ SCH ×2 (09:09→20:00)
[2019-10-14] MEDS: folic acid 1mg tablet OGT SCH (09:10)
[2019-10-14] MEDS: lactobacillus rhamnosus 10,000 MMU CELLS/CAPSULE OGT SCH ×2 (09:10→19:59)
[2019-10-14] MEDS: cefepime 2g/NS 100ml ADVANTAGE 100 ML IV SCH ×3 (09:10→23:54)
[2019-10-14] MEDS: pantoprazole 40 MG vial IV SCH (09:49)
[2019-10-14] MEDS: methylnaltrexone br 12mg/0.6ml inj***SubQ only SQ SCH (09:57)
--- NOTE | 2019-10-14 11:00 | NUR ---
Discussed patient not having bowel movement and ABGs with Dr. Hathaway who stated he would take care of it. Awaiting orders. will continue to monitor patient.
[2019-10-14 11:20] LABS: ABG BASE EXCESS 13.5 mmol/L (-2.0-3.0); ABG HCO3 38.4 mmol/L (22.0-26.0); ABG OXYGEN SATURATION 87.4 % (95-98); ABG PCO2 (T) 49.9 mmHg (35.0-45.0); ABG PH (T) 7.504 (7.350-7.450); ABG PO2 (T) 49.1 mmHg (83-108); ALLEN'S TEST POSITIVE; FCOHb 0.3 % (0.5-1.5); FMetHb 0.2 % (0.3-1.12); PEEP 5 cm H2O; RESPIRATORY RATE 12 b/min
[2019-10-14] MEDS: docusate sodium 100mg/10ml UD cup OGT SCH ×2 (11:34→19:59)
[2019-10-14 11:41] LABS: ABG BASE EXCESS 12.8 mmol/L (-2.0-3.0); ABG HCO3 36.8 mmol/L (22.0-26.0); ABG PH (T) 7.531 (7.350-7.450); ABG PO2 (T) 76.3 mmHg (83-108); ALLEN'S TEST POSITIVE; FCOHb 0.3 % (0.5-1.5); FMetHb 0.1 % (0.3-1.12); FO2Hb 95.6 % (94-100); PEEP 5 cm H2O; RESPIRATORY RATE 12 b/min; TIDAL VOLUME 500 mL; TOTAL HEMOGLOBIN 11.6 G/dl (14.0-17.9)
--- NOTE | 2019-10-14 18:20 | NUR ---
Problems reprioritized. Patient report given, questions answered & plan of care reviewed with Vinh MONSALVE.
[2019-10-14] MEDS: insulin glargine (Lantus) pen - multi-dose SQ SCH (19:54)
[2019-10-15] VITALS (26 sets, daily range): BP systolic 83–125; BP diastolic 39–65
[2019-10-15] MEDS: propofol 1000mg/100ml bottle 100 ML IV SCH ×5 (00:51→23:31)
[2019-10-15] MEDS: dexmedetomidin/NS 400mcg/100ml 100 ML IV SCH ×2 (00:52→17:36)
[2019-10-15] MEDS: midazolam 100mg in NS 100ml 100 ML IV PRN (01:31)
[2019-10-15] MEDS: multivitamins, therapeutics tablet PO SCH ×4 (02:15→19:32)
[2019-10-15] MEDS: methylPREDNISolone sod succ/PF 40mg inj. IV SCH ×4 (02:15→19:32)
[2019-10-15] MEDS: insulin regular, human vial - multi-dose SQ SCH ×4 (02:17→21:05)
[2019-10-15] MEDS: mineral oil/petrolatum ophthal oint EACHEYE SCH ×4 (02:26→19:33)
[2019-10-15] MEDS: ipratropium/albuterol 3ml nebule NEB SCH ×6 (03:15→23:42)
[2019-10-15 03:25] LABS: BASOPHILS % (AUTO) 0.1 % (0-1); EOSINOPHILS % (AUTO) 0 % (0-6); HEMATOCRIT 29.8 % (42.0-52.0); HEMOGLOBIN 10.1 g/dl (14.0-17.9); LYMPHOCYTES # (AUTO) 0.4 X10'3 (1.1-4.8); LYMPHOCYTES % (AUTO) 2.9 % (21-51); MEAN CORPUSCULAR HEMOGLOBIN 30.2 PG (27.0-31.0); MEAN CORPUSCULAR VOLUME 88.8 FL (78-98); MONOCYTES # (AUTO) 0.5 X10'3 (0-0.9); MONOCYTES % (AUTO) 3.7 % (2-12); NEUTROPHILS # (AUTO) 12.8 X10'3 (1.8-7.7); NEUTROPHILS % (AUTO) 93.3 % (42-75); PLATELET COUNT 316 X10'3 (140-440); RED BLOOD COUNT 3.35 X10'6 (4.70-6.10); RED CELL DISTRIBUTION WIDTH 14.6 % (11.5-14.5); WHITE BLOOD COUNT 13.7 X10'3 (4.5-11.0)
[2019-10-15 03:30] LABS: ABG BASE EXCESS 12.3 mmol/L (-2.0-3.0); ABG HCO3 37.2 mmol/L (22.0-26.0); ABG OXYGEN SATURATION 96.3 % (95-98); ABG PCO2 (T) 49.7 mmHg (35.0-45.0); ABG PH (T) 7.492 (7.350-7.450); ABG PO2 (T) 83.9 mmHg (83-108); ALLEN'S TEST POSITIVE; FCOHb 0.3 % (0.5-1.5); FMetHb 0.1 % (0.3-1.12); FO2Hb 95.9 % (94-100); PATIENT TEMPERATURE 37.2; PEEP 5 cm H2O; RESPIRATORY RATE 16 b/min; TIDAL VOLUME 500 mL; TOTAL HEMOGLOBIN 11.5 G/dl (14.0-17.9)
[2019-10-15 03:41] LABS: ALANINE AMINOTRANSFERASE 46 U/L (12-78); ALBUMIN 1.8 G/DL (3.4-5.0); ALBUMIN/GLOBULIN RATIO 0.5 (1.1-1.5); ALKALINE PHOSPHATASE 100 IU/L (46-116); ANION GAP -1 (8-16); ASPARTATE AMINO TRANSFERASE 28 U/L (10-37); BILIRUBIN,TOTAL 0.4 MG/DL (0.1-1.0); BLOOD UREA NITROGEN 39 MG/DL (7-18); BUN/CREATININE RATIO 56.5 (5.4-32.0); CALCIUM 8.1 MG/DL (8.5-10.1); CHLORIDE 103 MMOL/L (99-107); CREATININE 0.69 MG/DL (0.60-1.10); GLUCOSE 116 MG/DL (70-104); MAGNESIUM 1.9 MG/DL (1.5-2.4); POTASSIUM 3.6 MMOL/L (3.5-5.1); SODIUM 141 MMOL/L (135-145); TOTAL CARBON DIOXIDE 38.9 MMOL/L (24-32); TOTAL PROTEIN 5.5 G/DL (6.4-8.2); eGFR > 90 ML/MIN
[2019-10-15] MEDS: cefepime 2g/NS 100ml ADVANTAGE 100 ML IV SCH ×3 (07:19→23:26)
[2019-10-15] MEDS: docusate sodium 100mg/10ml UD cup OGT SCH ×2 (07:21→19:32)
[2019-10-15] MEDS: magnesium hydroxide 30ml (MOM) UD suspension OGT PRN (07:21)
[2019-10-15] MEDS: pantoprazole 40 MG vial IV SCH (07:21)
[2019-10-15] MEDS: heparin, porcine 5000 units/ml vial SQ SCH ×2 (07:21→19:33)
[2019-10-15] MEDS: amiodarone 200mg tablet OGT SCH ×2 (07:22→19:33)
[2019-10-15] MEDS: furosemide 40mg/4ml inj IV SCH ×3 (07:22→19:35)
[2019-10-15] MEDS: lactobacillus rhamnosus 10,000 MMU CELLS/CAPSULE OGT SCH ×2 (07:22→19:32)
[2019-10-15] MEDS: folic acid 1mg tablet OGT SCH (07:22)
[2019-10-15] MEDS: thiamine 100mg tablet OGT SCH (07:22)
[2019-10-15] MEDS: K and/or MAG REPLACEMENT MC SCH ×3 (08:00→20:00)
[2019-10-15] MEDS: FENTANYL-0.9 % NACL/PF 100 ML IV PRN ×3 (08:38→23:26)
[2019-10-15] MEDS ORDERED: pneumococcal 23-VAL P-sac vacc 25 mcg/0.5ml vial IMVAC ONE (10:35)
[2019-10-15] MEDS ORDERED: FLU VACC QS2019-20 36MOS UP/PF 60 MCG/0.5 ML SYRINGE IMVAC ONE (10:45)
--- NOTE | 2019-10-15 10:53 | NUR ---
Afluria (flu vaccine) and pneumovax (pneumococcal vaccine) was ordered for pt on 10/05. Per vaccine info sheet it is recommended to delay vaccine if pt is moderately or severely ill. Called pharmacy and pharmacy stated that it would be best to delay vaccine and that administration time will be adjusted accordingly.
--- NOTE | 2019-10-15 12:06 | NUR ---
Reassessment: Pt tolerating EN at goal GRV WNL. No BM 13 days yet since admit receiving routine colace, milk of magnesia, and relistor. HARPREET d/w RN regarding promotility agent per MD approval. Will continue to monitor. Rec: 1. continuous TF with Vital AF at goal rate 70ml/hr to provide 2016 kcal, 126 g protein with 1360 ml free water and total volume of 1680 ml. 2. PALB q /; daily weights 3. routine bowel care; opiate antagonist per MD 4. additional water flush 250 ml q 4 hours per Elementary Ell Teacher Addendum: 10/15/19 at [address] Amended: Links added.
--- NOTE | 2019-10-15 18:30 | NUR ---
Patient in room CICU 2013. I have received report from RN and had the opportunity to ask questions and assume patient care.
[2019-10-15] MEDS: insulin glargine (Lantus) pen - multi-dose SQ SCH (21:06)
[2019-10-16] VITALS (23 sets, daily range): BP systolic 81–136; BP diastolic 35–77
[2019-10-16] MEDS: methylPREDNISolone sod succ/PF 40mg inj. IV SCH ×4 (01:38→19:55)
[2019-10-16] MEDS: HYDROcodone/acetaminophen 10/325mg tab PO PRN (01:38)
[2019-10-16] MEDS: diphenhydrAMINE 50 mg/ml inj IV PRN (01:38)
[2019-10-16] MEDS: multivitamins, therapeutics tablet PO SCH ×4 (01:39→19:55)
[2019-10-16] MEDS: mineral oil/petrolatum ophthal oint EACHEYE SCH ×4 (01:41→19:56)
[2019-10-16] MEDS: ipratropium/albuterol 3ml nebule NEB SCH ×6 (03:53→23:23)
[2019-10-16 04:05] LABS: ABG BASE EXCESS 3.9 mmol/L (-2.0-3.0); ABG HCO3 27.7 mmol/L (22.0-26.0); ABG OXYGEN SATURATION 96.5 % (95-98); ABG PCO2 (T) 38.6 mmHg (35.0-45.0); ABG PH (T) 7.474 (7.350-7.450); ALLEN'S TEST POSITIVE; FCOHb 0.3 % (0.5-1.5); FMetHb 0.3 % (0.3-1.12); FO2Hb 95.9 % (94-100); PEEP 5 cm H2O; RESPIRATORY RATE 16 b/min; TIDAL VOLUME 500 mL
[2019-10-16 05:33] LABS: BASOPHILS % (AUTO) 0.2 % (0-1); EOSINOPHILS % (AUTO) 0.2 % (0-6); HEMATOCRIT 26.4 % (42.0-52.0); LYMPHOCYTES # (AUTO) 0.7 X10'3 (1.1-4.8); LYMPHOCYTES % (AUTO) 6.6 % (21-51); MEAN CORPUSCULAR HEMOGLOBIN 30.4 PG (27.0-31.0); MEAN CORPUSCULAR HGB CONC 34.2 g/dL (33.0-36.5); MEAN CORPUSCULAR VOLUME 88.8 FL (78-98); MEAN PLATELET VOLUME 8.3 FL (7.4-10.4); MONOCYTES # (AUTO) 0.5 X10'3 (0-0.9); PLATELET COUNT 308 X10'3 (140-440); RED BLOOD COUNT 2.97 X10'6 (4.70-6.10); RED CELL DISTRIBUTION WIDTH 14.4 % (11.5-14.5); WHITE BLOOD COUNT 10.3 X10'3 (4.5-11.0)
[2019-10-16 05:59] LABS: ALANINE AMINOTRANSFERASE 45 U/L (12-78); ALBUMIN 1.6 G/DL (3.4-5.0); ALBUMIN/GLOBULIN RATIO 0.5 (1.1-1.5); ALKALINE PHOSPHATASE 85 IU/L (46-116); ANION GAP 2 (8-16); ASPARTATE AMINO TRANSFERASE 28 U/L (10-37); BILIRUBIN,TOTAL 0.3 MG/DL (0.1-1.0); BLOOD UREA NITROGEN 38 MG/DL (7-18); BUN/CREATININE RATIO 65.5 (5.4-32.0); CALCIUM 7.6 MG/DL (8.5-10.1); CHLORIDE 103 MMOL/L (99-107); CREATININE 0.58 MG/DL (0.60-1.10); GLUCOSE 137 MG/DL (70-104); MAGNESIUM 2.1 MG/DL (1.5-2.4); POTASSIUM 4.1 MMOL/L (3.5-5.1); SODIUM 140 MMOL/L (135-145); TOTAL CARBON DIOXIDE 35.1 MMOL/L (24-32); TOTAL PROTEIN 4.9 G/DL (6.4-8.2); eGFR > 90 ML/MIN
[2019-10-16] MEDS: K and/or MAG REPLACEMENT MC SCH ×2 (08:00→20:00)
[2019-10-16] MEDS: cefepime 2g/NS 100ml ADVANTAGE 100 ML IV SCH ×2 (08:24→15:59)
[2019-10-16] MEDS: docusate sodium 100mg/10ml UD cup OGT SCH ×2 (08:25→19:56)
[2019-10-16] MEDS: lactobacillus rhamnosus 10,000 MMU CELLS/CAPSULE OGT SCH ×2 (08:25→19:55)
[2019-10-16] MEDS: magnesium hydroxide 30ml (MOM) UD suspension OGT PRN (08:25)
[2019-10-16] MEDS: methylnaltrexone br 12mg/0.6ml inj***SubQ only SQ SCH (08:25)
[2019-10-16] MEDS: heparin, porcine 5000 units/ml vial SQ SCH ×2 (08:25→19:55)
[2019-10-16] MEDS: thiamine 100mg tablet OGT SCH (08:26)
[2019-10-16] MEDS: amiodarone 200mg tablet OGT SCH ×2 (08:26→19:55)
[2019-10-16] MEDS: folic acid 1mg tablet OGT SCH (08:26)
[2019-10-16] MEDS: pantoprazole 40 MG vial IV SCH (08:26)
[2019-10-16] MEDS: propofol 1000mg/100ml bottle 100 ML IV SCH (08:37)
[2019-10-16] MEDS: insulin regular, human vial - multi-dose SQ SCH (08:41)
[2019-10-16] MEDS ORDERED: PEG 3350/Na sulf,bicarb,Cl/KCl oral sol 4 liter bottle PO ONE (10:50)
--- NOTE | 2019-10-16 11:30 | NUR ---
slight crepitus/subcutaneous emphysema noted around chest tube. CT with little to no output for ~[address] Grande notified. Keep chest tube in and monitor for another day per MD.
--- NOTE | 2019-10-16 13:53 | NUR ---
Dr. Grande came to bedside to assess pt. Vent weaning parameters met this AM. Per MD, pt is appropriate to extubate. Extubated at 1330 to 3L NC. Cough present
--- NOTE | 2019-10-16 13:58 | NUR ---
Follow up: 14 days no BM, discussed at rounds. Per Swing Driver pt will receive GoLytely in addition to colace, reglan, relistor, milk of magnesia. Addendum: 10/16/19 at [address] Amended: Links added.
[2019-10-16] MEDS: sodium chloride inj. 154 MEQ in Dextrose 10%-water IV solution 961.5 ML IV SCH (14:59)
[2019-10-16] MEDS: dexmedetomidin/NS 400mcg/100ml 100 ML IV SCH (17:14)
--- NOTE | 2019-10-16 19:11 | NUR ---
Patient in room CICU 2013. I have received report from GRICEL Cheema and had the opportunity to ask questions and assume patient care. Patient on D10 @ 70 mL/hr and Precedex at 0.4 mcg/kg/min. Patient awake and alert to person, place, and events. Will continue to monitor closely.
[2019-10-16] MEDS: furosemide 40mg/4ml inj IV SCH (19:55)
[2019-10-16] MEDS: insulin glargine (Lantus) pen - multi-dose SQ SCH (21:00)
--- NOTE | 2019-10-16 21:00 | NUR ---
Patient no longer on tube feeding. Per nursing judgement, will hold 2100 dose of Lantus and continue q6hr accuchecks per provider order.
[2019-10-17] VITALS (24 sets, daily range): BP systolic 104–129; BP diastolic 47–88
--- NOTE | 2019-10-17 00:41 | NUR ---
Titrated Precedex up from 0.4 mcg/kg/min to 0.5 mcg/kg/min. Patients HR 70 and SYS 120. Will continue to monitor closely.
[2019-10-17] MEDS: cefepime 2g/NS 100ml ADVANTAGE 100 ML IV SCH ×3 (00:52→15:31)
[2019-10-17] MEDS: mineral oil/petrolatum ophthal oint EACHEYE SCH ×3 (02:26→13:42)
[2019-10-17] MEDS: multivitamins, therapeutics tablet PO SCH ×4 (02:38→19:43)
[2019-10-17] MEDS: methylPREDNISolone sod succ/PF 40mg inj. IV SCH ×4 (02:39→19:43)
[2019-10-17] MEDS: ipratropium/albuterol 3ml nebule NEB SCH ×6 (03:02→23:02)
[2019-10-17] MEDS: sodium chloride inj. 154 MEQ in Dextrose 10%-water IV solution 961.5 ML IV SCH ×2 (05:04→18:56)
[2019-10-17] MEDS: dexmedetomidin/NS 400mcg/100ml 100 ML IV SCH (05:19)
--- NOTE | 2019-10-17 05:19 | NUR ---
Increased precedex from 0.5 mcg/kg/min to 0.6 mcg/kg/min.
[2019-10-17 06:04] LABS: BASOPHILS % (AUTO) 0.1 % (0-1); EOSINOPHILS % (AUTO) 0 % (0-6); HEMATOCRIT 26.4 % (42.0-52.0); HEMOGLOBIN 9.3 g/dl (14.0-17.9); LYMPHOCYTES # (AUTO) 0.4 X10'3 (1.1-4.8); MEAN CORPUSCULAR HGB CONC 35.2 g/dL (33.0-36.5); MEAN CORPUSCULAR VOLUME 88.2 FL (78-98); MEAN PLATELET VOLUME 7.9 FL (7.4-10.4); MONOCYTES # (AUTO) 0.5 X10'3 (0-0.9); MONOCYTES % (AUTO) 3.9 % (2-12); NEUTROPHILS # (AUTO) 11.9 X10'3 (1.8-7.7); PLATELET COUNT 342 X10'3 (140-440); RED BLOOD COUNT 2.99 X10'6 (4.70-6.10); RED CELL DISTRIBUTION WIDTH 14.5 % (11.5-14.5); WHITE BLOOD COUNT 12.8 X10'3 (4.5-11.0)
[2019-10-17 06:07] LABS: ALANINE AMINOTRANSFERASE 57 U/L (12-78); ALBUMIN 1.9 G/DL (3.4-5.0); ALBUMIN/GLOBULIN RATIO 0.5 (1.1-1.5); ALKALINE PHOSPHATASE 99 IU/L (46-116); ANION GAP 2 (8-16); ASPARTATE AMINO TRANSFERASE 38 U/L (10-37); BILIRUBIN,TOTAL 0.6 MG/DL (0.1-1.0); BLOOD UREA NITROGEN 29 MG/DL (7-18); BUN/CREATININE RATIO 49.2 (5.4-32.0); CALCIUM 7.8 MG/DL (8.5-10.1); CHLORIDE 104 MMOL/L (99-107); CREATININE 0.59 MG/DL (0.60-1.10); GLUCOSE 143 MG/DL (70-104); POTASSIUM 3.9 MMOL/L (3.5-5.1); SODIUM 139 MMOL/L (135-145); TOTAL PROTEIN 5.4 G/DL (6.4-8.2); eGFR > 90 ML/MIN
--- NOTE | 2019-10-17 06:17 | NUR ---
Problems reprioritized. Patient report given, questions answered & plan of care reviewed with GRICEL Trejo
--- NOTE | 2019-10-17 06:20 | NUR ---
Patient in room CICU 2013. I have received report from GRICEL Marino and had the opportunity to ask questions and assume patient care. Patient sleeping at this time, no distress noted. Will continue to monitor.
[2019-10-17] MEDS: pantoprazole 40 MG vial IV SCH (07:34)
[2019-10-17] MEDS: furosemide 40mg/4ml inj IV SCH ×2 (07:35→19:43)
[2019-10-17] MEDS: heparin, porcine 5000 units/ml vial SQ SCH ×2 (07:35→19:43)
[2019-10-17] MEDS: amiodarone 200mg tablet OGT SCH ×2 (07:36→19:43)
[2019-10-17] MEDS: docusate sodium 100mg/10ml UD cup OGT SCH ×2 (08:00→19:43)
[2019-10-17] MEDS: K and/or MAG REPLACEMENT MC SCH ×2 (08:00→19:44)
[2019-10-17] MEDS: folic acid 1mg tablet OGT SCH (08:27)
[2019-10-17] MEDS: lactobacillus rhamnosus 10,000 MMU CELLS/CAPSULE OGT SCH ×2 (08:27→19:43)
[2019-10-17] MEDS: thiamine 100mg tablet OGT SCH (09:09)
[2019-10-17] MEDS ORDERED: pneumococcal 23-VAL P-sac vacc 25 mcg/0.5ml vial IMVAC ONE (10:55)
[2019-10-17] MEDS ORDERED: FLU VACC QS2019-20 36MOS UP/PF 60 MCG/0.5 ML SYRINGE IMVAC ONE (10:55)
--- NOTE | 2019-10-17 12:32 | NUR ---
Nutrition consult received, patient extubated. Patient received a BSS this morning by ST, ST reports difficulty with chewing regular solids and recommends pureed food and thin liquids, is eating 25-49% of first two meals s/p extubation. Per Bedside RN patient did have a bowel movement last night, no size documented yet. Was without BM for two weeks and patient had been given GoLytely in addition to colace, reglan, relistor, milk of magnesia. Tube feedings had been discontinued. Will follow. Rec: 1. continue pureed diet with thin liquid per ST recs 2. monitor PO intake and need for ONS if with suboptimal PO Intake 3. continue bowel care as needed 4. weight per rx Addendum: 10/17/19 at [address] Amended: Links added.
[2019-10-17] MEDS: insulin Lispro (HumaLOG) vial - multi-dose SQ SCH ×2 (13:47→18:44)
--- NOTE | 2019-10-17 18:13 | NUR ---
Patient in room CICU 2013. I have received report from GRICEL Ralph and had the opportunity to ask questions and assume patient care.
--- NOTE | 2019-10-17 18:50 | NUR ---
Patient is A&Ox3, FUENTES, is weak and very HH. I helped him eat dinner w/o problem due to weakness and will continue to monitor.
[2019-10-17] MEDS: insulin glargine (Lantus) pen - multi-dose SQ SCH (21:41)
[2019-10-18] VITALS (22 sets, daily range): BP systolic 95–126; BP diastolic 49–75
[2019-10-18] MEDS: cefepime 2g/NS 100ml ADVANTAGE 100 ML IV SCH ×3 (00:21→16:06)
[2019-10-18] MEDS: multivitamins, therapeutics tablet PO SCH ×4 (02:18→20:27)
[2019-10-18] MEDS: methylPREDNISolone sod succ/PF 40mg inj. IV SCH ×4 (02:18→20:31)
[2019-10-18] MEDS: ipratropium/albuterol 3ml nebule NEB SCH ×6 (02:45→23:32)
[2019-10-18] MEDS: dexmedetomidin/NS 400mcg/100ml 100 ML IV SCH (05:40)
--- NOTE | 2019-10-18 06:30 | NUR ---
Patient in room CICU 2013. I have received report from Rut MONSALVE and had the opportunity to ask questions and assume patient care.
[2019-10-18] MEDS: docusate sodium 100mg/10ml UD cup OGT SCH (08:00)
[2019-10-18] MEDS: methylnaltrexone br 12mg/0.6ml inj***SubQ only SQ SCH (08:00)
[2019-10-18] MEDS: furosemide 40mg/4ml inj IV SCH ×2 (08:48→20:27)
[2019-10-18] MEDS: pantoprazole 40 MG vial IV SCH (08:48)
[2019-10-18] MEDS: heparin, porcine 5000 units/ml vial SQ SCH ×2 (08:49→20:29)
[2019-10-18] MEDS: lactobacillus rhamnosus 10,000 MMU CELLS/CAPSULE OGT SCH ×2 (08:50→20:27)
[2019-10-18] MEDS: amiodarone 200mg tablet OGT SCH (08:50)
[2019-10-18] MEDS: thiamine 100mg tablet OGT SCH (08:50)
[2019-10-18] MEDS: sodium chloride inj. 154 MEQ in Dextrose 10%-water IV solution 961.5 ML IV SCH ×2 (09:14→23:32)
[2019-10-18] MEDS ORDERED: dextrose ORAL solution 15 GM/59 ML bottle PO PRN ×2 (09:31→09:32)
[2019-10-18] MEDS ORDERED: acetaminophen 325mg tablet PO PRN (09:31)
[2019-10-18] MEDS ORDERED: magnesium hydroxide 30ml (MOM) UD suspension PO PRN (09:33)
[2019-10-18] MEDS ORDERED: mag hydrox/Alum hydrox/simeth 30ml oral suspension PO PRN (09:33)
[2019-10-18] MEDS ORDERED: POTASSIUM BICARB 20meq eff tab 20 MEQ TABLET.EFF PO PRN (09:34)
[2019-10-18] MEDS: folic acid 1mg tablet PO SCH (09:55)
[2019-10-18] MEDS: insulin Lispro (HumaLOG) vial - multi-dose SQ SCH (09:57)
[2019-10-18 12:31] LABS: BASOPHILS % (AUTO) 0.1 % (0-1); EOSINOPHILS % (AUTO) 0 % (0-6); HEMATOCRIT 33.5 % (42.0-52.0); HEMOGLOBIN 11.1 g/dl (14.0-17.9); LYMPHOCYTES # (AUTO) 0.5 X10'3 (1.1-4.8); LYMPHOCYTES % (AUTO) 2.4 % (21-51); MEAN CORPUSCULAR HEMOGLOBIN 29.7 PG (27.0-31.0); MEAN CORPUSCULAR HGB CONC 33.2 g/dL (33.0-36.5); MEAN CORPUSCULAR VOLUME 89.3 FL (78-98); MEAN PLATELET VOLUME 7.6 FL (7.4-10.4); MONOCYTES # (AUTO) 0.6 X10'3 (0-0.9); MONOCYTES % (AUTO) 3.3 % (2-12); NEUTROPHILS # (AUTO) 17.9 X10'3 (1.8-7.7); NEUTROPHILS % (AUTO) 94.2 % (42-75); PLATELET COUNT 470 X10'3 (140-440); RED BLOOD COUNT 3.75 X10'6 (4.70-6.10); RED CELL DISTRIBUTION WIDTH 14.9 % (11.5-14.5)
--- NOTE | 2019-10-18 12:39 | NUR ---
Reassessment: Pt on pureed thin liquid Heart Healthy diet eating 25-50% last four meals, not meeting nutrient needs. Discussed with dietary to send ensure pudding q dinners. LBM x2 on 10/17 following 13 days of constipation, pt receiving routine bowel care. Will continue to monitor. Rec: 1. continue pureed heart healthy diet with thin liquid per ST recs 2. monitor PO intake and need for ONS if with suboptimal PO Intake 3. ensure pudding q dinners 4. continue bowel care as needed 5. weight per rx Addendum: 10/18/19 at [address] RD [place] Addendum: 10/18/19 at 1240 by Wing Santa MULLINS Amended: Links added.
[2019-10-18 13:07] LABS: ALANINE AMINOTRANSFERASE 69 U/L (12-78); ALBUMIN 2.3 G/DL (3.4-5.0); ALBUMIN/GLOBULIN RATIO 0.5 (1.1-1.5); ALKALINE PHOSPHATASE 120 IU/L (46-116); ANION GAP 4 (8-16); ASPARTATE AMINO TRANSFERASE 33 U/L (10-37); BILIRUBIN,TOTAL 0.8 MG/DL (0.1-1.0); BLOOD UREA NITROGEN 27 MG/DL (7-18); BUN/CREATININE RATIO 36.5 (5.4-32.0); CALCIUM 8.5 MG/DL (8.5-10.1); CHLORIDE 97 MMOL/L (99-107); CREATININE 0.74 MG/DL (0.60-1.10); POTASSIUM 3.4 MMOL/L (3.5-5.1); SODIUM 133 MMOL/L (135-145); TOTAL CARBON DIOXIDE 31.9 MMOL/L (24-32); eGFR > 90 ML/MIN
[2019-10-18 13:08] LABS: GLUCOSE 44 MG/DL (70-104)
[2019-10-18] MEDS: K and/or MAG REPLACEMENT MC SCH ×2 (16:00→20:00)
[2019-10-18] MEDS: POTASSIUM BICARB 20meq eff tab 20 MEQ TABLET.EFF PO PRN (16:06)
--- NOTE | 2019-10-18 18:20 | NUR ---
Problems reprioritized. Patient report given, questions answered & plan of care reviewed with Patience MONSALVE.
[2019-10-18] MEDS: amiodarone 200mg tablet PO SCH (20:28)
[2019-10-18] MEDS: dronabinol 2.5mg capsule PO PRN (20:29)
[2019-10-18] MEDS: docusate sodium 100mg/10ml UD cup PO SCH (20:32)
[2019-10-18] MEDS: insulin glargine (Lantus) pen - multi-dose SQ SCH (21:00)
[2019-10-19] VITALS (13 sets, daily range): BP systolic 97–143; BP diastolic 50–75
[2019-10-19] MEDS: cefepime 2g/NS 100ml ADVANTAGE 100 ML IV SCH ×3 (00:18→16:36)
[2019-10-19] MEDS: methylPREDNISolone sod succ/PF 40mg inj. IV SCH ×4 (02:00→20:20)
[2019-10-19] MEDS: multivitamins, therapeutics tablet PO SCH ×4 (02:00→20:24)
[2019-10-19] MEDS: ipratropium/albuterol 3ml nebule NEB SCH ×6 (03:18→23:00)
[2019-10-19 04:53] LABS: HEMOGLOBIN 10.4 g/dl (14.0-17.9); MEAN PLATELET VOLUME 7.1 FL (7.4-10.4); MONOCYTES # (AUTO) 0.4 X10'3 (0-0.9); RED CELL DISTRIBUTION WIDTH 14.9 % (11.5-14.5)
[2019-10-19 04:55] LABS: BASOPHILS % (AUTO) 0.1 % (0-1); EOSINOPHILS % (AUTO) 0 % (0-6); HEMATOCRIT 30.2 % (42.0-52.0); LYMPHOCYTES % (AUTO) 6.9 % (21-51); MEAN CORPUSCULAR HEMOGLOBIN 30.6 PG (27.0-31.0); MEAN CORPUSCULAR HGB CONC 34.5 g/dL (33.0-36.5); MEAN CORPUSCULAR VOLUME 88.8 FL (78-98); MONOCYTES % (AUTO) 2.9 % (2-12); NEUTROPHILS % (AUTO) 90.1 % (42-75); PLATELET COUNT 341 X10'3 (140-440); WHITE BLOOD COUNT 14.4 X10'3 (4.5-11.0)
[2019-10-19 05:19] LABS: ALANINE AMINOTRANSFERASE 64 U/L (12-78); ALBUMIN 2.2 G/DL (3.4-5.0); ALBUMIN/GLOBULIN RATIO 0.5 (1.1-1.5); ALKALINE PHOSPHATASE 116 IU/L (46-116); ANION GAP 3 (8-16); ASPARTATE AMINO TRANSFERASE 26 U/L (10-37); BILIRUBIN,TOTAL 0.8 MG/DL (0.1-1.0); BLOOD UREA NITROGEN 25 MG/DL (7-18); BUN/CREATININE RATIO 36.8 (5.4-32.0); CALCIUM 8.4 MG/DL (8.5-10.1); CHLORIDE 96 MMOL/L (99-107); CREATININE 0.68 MG/DL (0.60-1.10); GLUCOSE 103 MG/DL (70-104); MAGNESIUM 1.9 MG/DL (1.5-2.4); POTASSIUM 3.9 MMOL/L (3.5-5.1); PREALBUMIN 23.6 MG/DL (19-36); SODIUM 130 MMOL/L (135-145); TOTAL CARBON DIOXIDE 31.4 MMOL/L (24-32); TOTAL PROTEIN 6.6 G/DL (6.4-8.2); eGFR > 90 ML/MIN
--- NOTE | 2019-10-19 06:45 | NUR ---
Patient in room PCU 3023. I have received report from GRICEL Morin and had the opportunity to ask questions and assume patient care.
[2019-10-19] MEDS: docusate sodium 100mg/10ml UD cup PO SCH ×2 (08:00→20:00)
[2019-10-19] MEDS: furosemide 40mg/4ml inj IV SCH ×2 (08:00→20:20)
[2019-10-19] MEDS: pantoprazole 40 MG vial IV SCH (08:04)
[2019-10-19] MEDS: folic acid 1mg tablet PO SCH (08:05)
[2019-10-19] MEDS: amiodarone 200mg tablet PO SCH ×2 (08:06→20:24)
[2019-10-19] MEDS: heparin, porcine 5000 units/ml vial SQ SCH ×2 (08:06→20:23)
[2019-10-19] MEDS: thiamine 100mg tablet PO SCH (08:06)
[2019-10-19] MEDS: lactobacillus rhamnosus 10,000 MMU CELLS/CAPSULE OGT SCH ×2 (08:06→20:24)
[2019-10-19] MEDS: K and/or MAG REPLACEMENT MC SCH ×2 (08:07→20:00)
--- NOTE | 2019-10-19 14:15 | NUR ---
Problems reprioritized. Patient report given, questions answered & plan of care reviewed with Willa Sanford RN.
--- NOTE | 2019-10-19 14:17 | NUR ---
Patient in room PCU 3023. I have received report from GRICEL Sands and had the opportunity to ask questions and assume patient care. Patient arrived on unit and was able to transfer from wheelchair to bed with moderate assistance. VSS, no acute distress, will continue to monitor.
[2019-10-19] MEDS: normal saline 1000ml 1,000 ML IV SCH (14:35)
[2019-10-19] MEDS ORDERED: digoxin 250mcg/ml 2ml ampule IV SCH (15:00)
--- NOTE | 2019-10-19 18:06 | NUR ---
Problems reprioritized. Patient report given, questions answered & plan of care reviewed with GRICEL De Jesus.
--- NOTE | 2019-10-19 18:20 | NUR ---
Patient in room PCU 3023. I have received report from Willa Sanford RN and had the opportunity to ask questions and assume patient care. Patient is finishing up his dinner, will continue to monitor.
[2019-10-20] MEDS: methylPREDNISolone sod succ/PF 40mg inj. IV SCH ×4 (01:14→19:43)
[2019-10-20] MEDS: cefepime 2g/NS 100ml ADVANTAGE 100 ML IV SCH ×2 (01:14→09:01)
[2019-10-20] MEDS: multivitamins, therapeutics tablet PO SCH ×4 (01:15→19:43)
[2019-10-20] MEDS: normal saline 1000ml 1,000 ML IV SCH ×5 (01:15→23:58)
[2019-10-20 02:00] VITALS: BP 100/39
[2019-10-20] MEDS: ipratropium/albuterol 3ml nebule NEB SCH ×6 (03:56→23:48)
--- NOTE | 2019-10-20 06:32 | NUR ---
Problems reprioritized. Patient report given, questions answered & plan of care reviewed with Shavon MONSALVE.
--- NOTE | 2019-10-20 06:33 | NUR ---
Patient in room PCU 3023. I have received report from GRICEL De Jesus and had the opportunity to ask questions and assume patient care.
[2019-10-20 07:00] VITALS: BP 106/72
[2019-10-20] MEDS: methylnaltrexone br 12mg/0.6ml inj***SubQ only SQ SCH (08:00)
[2019-10-20] MEDS: K and/or MAG REPLACEMENT MC SCH ×2 (08:00→20:00)
[2019-10-20] MEDS: docusate sodium 100mg/10ml UD cup PO SCH ×2 (08:00→19:43)
[2019-10-20] MEDS: folic acid 1mg tablet PO SCH (08:47)
[2019-10-20] MEDS: thiamine 100mg tablet PO SCH (08:47)
[2019-10-20] MEDS: lactobacillus rhamnosus 10,000 MMU CELLS/CAPSULE OGT SCH ×2 (08:48→19:43)
[2019-10-20] MEDS: amiodarone 200mg tablet PO SCH ×2 (08:48→19:43)
[2019-10-20] MEDS: pantoprazole 40 MG vial IV SCH (08:48)
[2019-10-20] MEDS: furosemide 40mg/4ml inj IV SCH ×2 (08:57→19:43)
[2019-10-20 09:06] LABS: BASOPHILS % (AUTO) 0.1 % (0-1); EOSINOPHILS % (AUTO) 0 % (0-6); HEMATOCRIT 31.2 % (42.0-52.0); HEMOGLOBIN 10.6 g/dl (14.0-17.9); LYMPHOCYTES # (AUTO) 0.5 X10'3 (1.1-4.8); LYMPHOCYTES % (AUTO) 2.7 % (21-51); MEAN CORPUSCULAR HEMOGLOBIN 30.3 PG (27.0-31.0); MEAN CORPUSCULAR HGB CONC 33.8 g/dL (33.0-36.5); MEAN CORPUSCULAR VOLUME 89.6 FL (78-98); MEAN PLATELET VOLUME 7.2 FL (7.4-10.4); MONOCYTES # (AUTO) 0.3 X10'3 (0-0.9); MONOCYTES % (AUTO) 1.6 % (2-12); NEUTROPHILS # (AUTO) 17.9 X10'3 (1.8-7.7); NEUTROPHILS % (AUTO) 95.6 % (42-75); PLATELET COUNT 363 X10'3 (140-440); RED BLOOD COUNT 3.48 X10'6 (4.70-6.10); RED CELL DISTRIBUTION WIDTH 14.8 % (11.5-14.5); WHITE BLOOD COUNT 18.8 X10'3 (4.5-11.0)
[2019-10-20 09:25] LABS: ALBUMIN 1.7 G/DL (3.4-5.0); ANION GAP 7 (8-16); BLOOD UREA NITROGEN 26 MG/DL (7-18); BUN/CREATININE RATIO 34.7 (5.4-32.0); CALCIUM 8.5 MG/DL (8.5-10.1); CHLORIDE 97 MMOL/L (99-107); CREATININE 0.75 MG/DL (0.60-1.10); GLUCOSE 146 MG/DL (70-104); POTASSIUM 3.7 MMOL/L (3.5-5.1); SODIUM 131 MMOL/L (135-145); TOTAL CARBON DIOXIDE 26.6 MMOL/L (24-32); eGFR > 90 ML/MIN
--- NOTE | 2019-10-20 10:06 | NUR ---
Called Harjinder regarding pts HR trending 130s-150s. No new orders at this time except to monitor pt.
[2019-10-20] MEDS: heparin, porcine 5000 units/ml vial SQ SCH ×2 (10:20→19:43)
[2019-10-20] MEDS ORDERED: magnesium 2GM in 50ml NS 50 ML IV ONE (10:35)
[2019-10-20 11:00] VITALS: BP 118/78
[2019-10-20 15:00] VITALS: BP 128/61
--- NOTE | 2019-10-20 15:26 | NUR ---
Reassessment: Patient's diet has been advanced to mechanical soft however continues averaging 25-50% PO intake not meeting nutrient needs. Pt seen at bedside confirms low appetite. Food preferences were obtained and d/w dietary, see below. Pt reports difficulty swallowing current texture and agrees to grind all food. Pt reports LBM today. Pt provided with RD contact information. Will continue to follow closely and monitor need for further nutrition intervention. Rec: 1. Continue mechanical soft heart healthy grind all diet with thin liquids; monitor need for additional texture modification 2. Salsa TID; gravy on meat and potatoes TID; ice cream BIDLD; Ensure pudding q dinners 3. Routine bowel care 4. Weight per rx Addendum: 10/20/19 at [address] Amended: Links added.
[2019-10-20 18:00] VITALS: BP 147/100
--- NOTE | 2019-10-20 18:35 | NUR ---
Problems reprioritized. Patient report given, questions answered & plan of care reviewed with Fabricio RN.
[2019-10-20 22:00] VITALS: BP 132/62
[2019-10-21 02:00] VITALS: BP 128/68
[2019-10-21] MEDS: methylPREDNISolone sod succ/PF 40mg inj. IV SCH ×4 (02:18→20:45)
[2019-10-21] MEDS: multivitamins, therapeutics tablet PO SCH ×4 (02:18→20:46)
[2019-10-21] MEDS: ipratropium/albuterol 3ml nebule NEB SCH ×6 (03:31→23:53)
--- NOTE | 2019-10-21 06:05 | NUR ---
Patient in room PCU 3023. I have received report from GRICEL Nj and had the opportunity to ask questions and assume patient care.
[2019-10-21 06:41] LABS: ALBUMIN 2.1 G/DL (3.4-5.0); ANION GAP 9 (8-16); BLOOD UREA NITROGEN 20 MG/DL (7-18); BUN/CREATININE RATIO 32.8 (5.4-32.0); CHLORIDE 99 MMOL/L (99-107); CREATININE 0.61 MG/DL (0.60-1.10); GLUCOSE 126 MG/DL (70-104); POTASSIUM 3.3 MMOL/L (3.5-5.1); SODIUM 134 MMOL/L (135-145); TOTAL CARBON DIOXIDE 26.5 MMOL/L (24-32); eGFR > 90 ML/MIN
[2019-10-21 07:00] VITALS: BP 130/60
--- NOTE | 2019-10-21 07:12 | NUR ---
New orders from Harjinder for a CBC lab draw for today and tomorrow.
[2019-10-21 07:46] LABS: BASOPHILS % (AUTO) 0.2 % (0-1); EOSINOPHILS % (AUTO) 0 % (0-6); HEMATOCRIT 26.1 % (42.0-52.0); HEMOGLOBIN 8.9 g/dl (14.0-17.9); LYMPHOCYTES # (AUTO) 0.3 X10'3 (1.1-4.8); LYMPHOCYTES % (AUTO) 1.7 % (21-51); MEAN CORPUSCULAR HEMOGLOBIN 30.5 PG (27.0-31.0); MEAN CORPUSCULAR HGB CONC 34.1 g/dL (33.0-36.5); MEAN CORPUSCULAR VOLUME 89.5 FL (78-98); MONOCYTES # (AUTO) 0.3 X10'3 (0-0.9); MONOCYTES % (AUTO) 1.7 % (2-12); NEUTROPHILS # (AUTO) 17.6 X10'3 (1.8-7.7); NEUTROPHILS % (AUTO) 96.4 % (42-75); PLATELET COUNT 279 X10'3 (140-440); RED BLOOD COUNT 2.92 X10'6 (4.70-6.10); RED CELL DISTRIBUTION WIDTH 14.9 % (11.5-14.5); WHITE BLOOD COUNT 18.2 X10'3 (4.5-11.0)
[2019-10-21] MEDS: thiamine 100mg tablet PO SCH (08:14)
[2019-10-21] MEDS: lactobacillus rhamnosus 10,000 MMU CELLS/CAPSULE OGT SCH ×2 (08:14→20:46)
[2019-10-21] MEDS: folic acid 1mg tablet PO SCH (08:15)
[2019-10-21] MEDS: amiodarone 200mg tablet PO SCH ×2 (08:15→20:46)
[2019-10-21] MEDS: heparin, porcine 5000 units/ml vial SQ SCH ×2 (08:16→20:45)
[2019-10-21] MEDS: pantoprazole 40 MG vial IV SCH (08:16)
[2019-10-21] MEDS: furosemide 40mg/4ml inj IV SCH ×2 (08:16→20:45)
[2019-10-21] MEDS: docusate sodium 100mg/10ml UD cup PO SCH ×2 (08:36→20:45)
[2019-10-21] MEDS: K and/or MAG REPLACEMENT MC SCH ×2 (08:37→20:57)
[2019-10-21] MEDS: tamsulosin 0.4mg capsule PO SCH (08:45)
[2019-10-21] MEDS: POTASSIUM BICARB 20meq eff tab 20 MEQ TABLET.EFF PO PRN ×3 (08:45→22:59)
[2019-10-21 11:00] VITALS: BP 121/67
[2019-10-21 11:02] LABS: CLARITY,URINE CLEAR (Clear); COLOR,URINE YELLOW (Yellow); GLUCOSE, URINE NEGATIVE (Neg); KETONES,URINE NEGATIVE (Neg); LEUKOCYTE ESTERASE ,URINE NEGATIVE (Neg); NITRITES, URINE NEGATIVE (Neg); OCCULT BLOOD,URINE MODERATE (Neg); PROTEIN,URINE NEGATIVE (Neg); UROBILINOGEN,URINE 0.2 E.U/dL (0.2-1.0)
[2019-10-21 11:08] LABS: BACTERIA,URINE NONE SEEN /HPF (Neg); MUCUS STRANDS FEW /LPF (Neg); SQUAMOUS EPITHELIAL CELL,UR NONE SEEN /LPF (FEW); UA COLLECTION TYPE OTHER; WBC,URINE NONE SEEN /HPF (0-4)
--- NOTE | 2019-10-21 12:06 | NUR ---
PAGER ID: [phone] MESSAGE: [phone]: Samantha Jose - January I have a written script for pts enrico to take with her to [facility]? Kindly advise! -Shavon [phone] Addendum: 10/21/19 at 1854 by Shavon Rand RN VOID, wrong pt
[2019-10-21] MEDS: normal saline 1000ml 1,000 ML IV SCH ×3 (13:05→19:45)
[2019-10-21] MEDS: HYDROcodone/acetaminophen 10/325mg tab PO PRN (14:44)
[2019-10-21 17:00] VITALS: BP 119/55
[2019-10-21 18:00] VITALS: BP 107/58
--- NOTE | 2019-10-21 18:40 | NUR ---
Patient in room PCU 3023. I have received report from GRICEL Sands and had the opportunity to ask questions and assume patient care.
--- NOTE | 2019-10-21 18:54 | NUR ---
Problems reprioritized. Patient report given, questions answered & plan of care reviewed with GRICEL Alvarenga.
--- NOTE | 2019-10-21 19:42 | NUR ---
Problems reprioritized. Patient report given, questions answered & plan of care reviewed with GRICEL Nj from [facility].
[2019-10-21 22:00] VITALS: BP 134/62
[2019-10-22 02:00] VITALS: BP 108/60
[2019-10-22] MEDS: normal saline 1000ml 1,000 ML IV SCH ×3 (02:25→14:29)
[2019-10-22] MEDS: methylPREDNISolone sod succ/PF 40mg inj. IV SCH ×3 (02:31→14:31)
[2019-10-22] MEDS: multivitamins, therapeutics tablet PO SCH ×3 (02:31→14:29)
[2019-10-22] MEDS: ipratropium/albuterol 3ml nebule NEB SCH ×4 (03:00→15:52)
[2019-10-22 06:05] LABS: BASOPHILS % (AUTO) 0.1 % (0-1); EOSINOPHILS % (AUTO) 0 % (0-6); HEMATOCRIT 23.6 % (42.0-52.0); HEMOGLOBIN 8.1 g/dl (14.0-17.9); LYMPHOCYTES # (AUTO) 0.2 X10'3 (1.1-4.8); LYMPHOCYTES % (AUTO) 1.3 % (21-51); MEAN CORPUSCULAR HEMOGLOBIN 30.4 PG (27.0-31.0); MEAN CORPUSCULAR HGB CONC 34.3 g/dL (33.0-36.5); MEAN CORPUSCULAR VOLUME 88.5 FL (78-98); MEAN PLATELET VOLUME 7.1 FL (7.4-10.4); MONOCYTES # (AUTO) 0.2 X10'3 (0-0.9); NEUTROPHILS # (AUTO) 15.6 X10'3 (1.8-7.7); NEUTROPHILS % (AUTO) 97.6 % (42-75); PLATELET COUNT 229 X10'3 (140-440); RED BLOOD COUNT 2.67 X10'6 (4.70-6.10); RED CELL DISTRIBUTION WIDTH 15.2 % (11.5-14.5)
--- NOTE | 2019-10-22 06:24 | NUR ---
Patient in room PCU 3023. I have received report from GRICEL Nj and had the opportunity to ask questions and assume patient care.
[2019-10-22 06:30] VITALS: BP 94/40
[2019-10-22 06:54] LABS: ANION GAP 8 (8-16); BLOOD UREA NITROGEN 15 MG/DL (7-18); BUN/CREATININE RATIO 26.3 (5.4-32.0); CALCIUM 8.1 MG/DL (8.5-10.1); CHLORIDE 100 MMOL/L (99-107); CREATININE 0.57 MG/DL (0.60-1.10); GLUCOSE 129 MG/DL (70-104); POTASSIUM 3.5 MMOL/L (3.5-5.1); SODIUM 133 MMOL/L (135-145); TOTAL CARBON DIOXIDE 24.8 MMOL/L (24-32); eGFR > 90 ML/MIN
[2019-10-22] MEDS: K and/or MAG REPLACEMENT MC SCH (08:00)
[2019-10-22] MEDS: methylnaltrexone br 12mg/0.6ml inj***SubQ only SQ SCH (08:00)
[2019-10-22] MEDS: docusate sodium 100mg/10ml UD cup PO SCH (08:00)
[2019-10-22] MEDS: amiodarone 200mg tablet PO SCH (08:16)
[2019-10-22] MEDS: tamsulosin 0.4mg capsule PO SCH (08:17)
[2019-10-22] MEDS: lactobacillus rhamnosus 10,000 MMU CELLS/CAPSULE OGT SCH (08:17)
[2019-10-22] MEDS: thiamine 100mg tablet PO SCH (08:17)
[2019-10-22] MEDS: folic acid 1mg tablet PO SCH (08:17)
[2019-10-22] MEDS: pantoprazole 40 MG vial IV SCH (08:18)
[2019-10-22] MEDS: heparin, porcine 5000 units/ml vial SQ SCH (08:18)
[2019-10-22] MEDS: furosemide 40mg/4ml inj IV SCH (08:25)
[2019-10-22 08:30] VITALS: BP 105/69
[2019-10-22 11:00] VITALS: BP 105/59
[2019-10-22 15:00] VITALS: BP 113/64
--- NOTE | 2019-10-22 17:34 | NUR ---
REPORT CALLED TO GRICEL NUNEZ AT [facility].
--- NOTE | 2019-10-22 18:49 | NUR ---
REPORT GIVEN TO GRICEL GAN [facility] RN. PT TAKEN BY [facility] TO AMBULANCE BY EMS. PT IN STABLE CONDITION. Addendum: 10/22/19 at 1850 by Maria Pierre RN TRANSFER PACKETS GIVEN TO GRICEL GAN. ALL BELONGINGS WITH PT
== END 2019-10-22 18:30 | disposition short-term general hospital (02) | DRG 870 ==
LOC: ER 12:16 → ED HOLD 15:06 → EDBEDREQSVC 20:04 → CICU 2S 23:27 → PCU 3S 10-19 13:57
PROVIDERS: ADMIT Family Medicine
PROC: 5A1955Z Respiratory Ventilation, Greater than 96 Consecutive Hours (ICD-10-PCS; 2019-10-05)
PROC: 0BH17EZ Insertion of Endotracheal Airway into Trachea, Via Natural or Artificial Opening (ICD-10-PCS; 2019-10-05)
PROC: B32T1ZZ Computerized Tomography (CT Scan) of Left Pulmonary Artery using Low Osmolar Contrast (ICD-10-PCS; 2019-10-05)
PROC: B32S1ZZ Computerized Tomography (CT Scan) of Right Pulmonary Artery using Low Osmolar Contrast (ICD-10-PCS; 2019-10-05)
PROC: 0W9B30Z Drainage of Left Pleural Cavity with Drainage Device, Percutaneous Approach (ICD-10-PCS; principal; 2019-10-07)
PROC: 3E02340 Introduction of Influenza Vaccine into Muscle, Percutaneous Approach (ICD-10-PCS; 2019-10-17)
PROC: 3E0234Z Introduction of Serum, Toxoid and Vaccine into Muscle, Percutaneous Approach (ICD-10-PCS; 2019-10-17)
PROC: 0WPBX0Z Removal of Drainage Device from Left Pleural Cavity, External Approach (ICD-10-PCS; 2019-10-18)
DX: A41.9 Sepsis, unspecified organism (principal); R65.21 Severe sepsis with septic shock; J96.01 Acute respiratory failure with hypoxia; I26.01 Septic pulmonary embolism with acute cor pulmonale; J10.00 Influenza due to other identified influenza virus with unspecified type of pneumonia; N17.9 Acute kidney failure, unspecified; E87.3 Alkalosis; R64 Cachexia; E87.0 Hyperosmolality and hypernatremia; J93.83 Other pneumothorax; I48.91 Unspecified atrial fibrillation; J44.9 Chronic obstructive pulmonary disease, unspecified; N40.0 Benign prostatic hyperplasia without lower urinary tract symptoms; Z82.5 Family history of asthma and other chronic lower respiratory diseases; Z83.3 Family history of diabetes mellitus; Z87.01 Personal history of pneumonia (recurrent); Z87.891 Personal history of nicotine dependence; K21.9 Gastro-esophageal reflux disease without esophagitis; Z79.899 Other long term (current) drug therapy; Z23 Encounter for immunization
CPT/HCPCS: 36415; 36600; 71045; 71275; 76937; 78582; 80048; 80053; 81001; 82803; 82948; 83036; 83605; 83735; 83880; 84100; 84132; 84134; 84145; 84478; 84484; 85018; 85025; 85379; 85610; 85730; 87040; 87070; 87081; 87088; 87502; 87503; 90732; 92508; 92616; 93005; 93306; 93970; 94002; 94003; 94640; 94667; 94760; 96365; 96375; 97110; 97116; 97161; 97530; 99291; A9539; A9540; C9113; G0378; J0282; J0456; J0692; J0696; J1160; J1170; J1200; J1630; J1644; J1815; J1940; J2060; J2212; J2250; J2270; J2704; J2765; J2920; J2930; J3010; J3475; J3480; J3486; J3490; J7030; J7131; J7614; Q0167; Q2037; Q9967

== ENCOUNTER 2025-07-11 11:58 | Emergency (ER) | payer BC, OTHER ==
[~2025-07-11] VITALS: Ht 177.8 cm; Wt 68.2 kg
[~2025-07-11 11:58] MED LIST changes: -ACET1TAB12 PO; -ALBU8.5H8 IH; -MAGN400C PO; -PANT-47 PO; +PANT20TA18 PO; -etomidate 2mg/ml inj. ONE
[2025-07-11 12:49] LABS: MEAN PLATELET VOLUME 7.4 FL (7.4-10.4); RED CELL DISTRIBUTION WIDTH 13.1 % (11.5-14.5)
[2025-07-11 13:11] LABS: CREATININE 0.96 MG/DL (0.60-1.10); TOTAL CARBON DIOXIDE 21.5 MMOL/L (24-32); eCRCL 71 ML/MIN; eGFR 78 ML/MIN
--- NOTE | 2025-07-11 15:33 | Physician Documentation ---
History of Present Illness Chief Complaint: Abdominal Pain Stated Complaint: ABD PAIN Time Seen by MD: 15:32 Primary Medical Doctor: fransico [facility] 69-year-old male presenting with chronic abdominal pain. He tells me that for years he has had intermittent pain in his abdomen. He tells me he has been to an outside hospital several times including yesterday. He has had an extensive workup including CT scans, ultrasounds, etc.. He was recently diagnosed with a urinary tract infection and is currently on antibiotics. He reports urinary retention at that time. He presents today because he had another episode of abdominal pain. He states it started in his upper abdomen and radiated to the right side. He states it lasted from about 8:00 a.m. until 4:00 a.m.. He states it was sharp and severe. It did not radiate including to his back. Currently he tells me he is asymptomatic. Medication Reconciliation Allergies: Coded Allergies: No Known Allergies (Unverified , 07/11/25) Scheduled Pantoprazole Sodium (Protonix), 1 TAB PO DAILY, (Reported) Past Medical History Past Medical History: *GI/HEPATOBILIARY*, GERD, BPH Past Surgical History: other Other Past Surgical History: Prostate Surgery Patient History: FH: COPD (chronic obstructive pulmonary disease) FATHER MOTHER FH: diabetes in Brother Drug Use: none Lives with: S/O Lives In: Home Review of Systems Constitutional: Denies: fever Gastrointestinal: Reports: abdominal pain, nausea, vomiting Physical Exam Vital Signs: Temperature: 98.0, Source: Temporal, Heart Rate: 74, Respiratory Rate: 18, BP: 146/80, Pulse Oximetry: 94, Weight: 68.180 Oxygen Flow Rate: 0 Physical Exam General: This is a pleasant and well-appearing middle-aged man, not in distress HEENT: Atraumatic, oropharynx appears dry Heart: Regular rate and rhythm, normal-appearing peripheral perfusion Lungs: Clear breath sounds bilateral, normal work of breathing, normal oxygen saturation on room air Abdomen: Soft, nondistended, nontender all quadrants, no reproducible pain Neuro: Alert and oriented Psychiatric: Calm and cooperative with exam Progress Results/Orders Results/Orders Orders - SIRISHA HOBBS MD Urinalysis, Cult If Indicated (07/11/25 12:27) Completed Orders - SIRISHA HOBBS MD Cbc/Diff (07/11/25 12:27) Amylase (07/11/25 12:27) Lipase (07/11/25 12:27) CMP (07/11/25 12:27) Vital Signs 07/11/25 07/11/25 12:24 15:24 Temp 98.0 Pulse 92 74 Resp 18 18 B/P (MAP) 133/117 146/80 (102) Pulse Ox 98 94 O2 Flow Rate 0 Laboratory Tests Test 07/11/25 12:38 White Blood Count 10.5 Red Blood Count 4.82 Hemoglobin 14.8 Hematocrit 43.6 Mean Corpuscular Volume 90.3 Mean Corpuscular Hemoglobin 30.8 Mean Corpuscular Hemoglobin Concent 34.1 Red Cell Distribution Width 13.1 Platelet Count 309 Mean Platelet Volume 7.4 Neutrophils (%) (Auto) 82.5 H Lymphocytes (%) (Auto) 11.7 L Monocytes (%) (Auto) 5.0 Eosinophils (%) (Auto) 0.2 Basophils (%) (Auto) 0.6 Neutrophils # (Auto) 8.6 H Lymphocytes # (Auto) 1.2 Monocytes # (Auto) 0.5 Eosinophils # (Auto) 0.0 Basophils # (Auto) 0.1 CBC Comment Sodium Level 137 Potassium Level 3.5 Chloride Level 103 Carbon Dioxide Level 21.5 L Anion Gap 13 Blood Urea Nitrogen 14 Creatinine 0.96 Estimated GFR/1.73 m2 78 BUN/Creatinine Ratio 14.6 Glucose Level 133 H Calcium Level 9.5 Total Bilirubin 0.6 Aspartate Amino Transf (AST/SGOT) 33 Alanine Aminotransferase (ALT/SGPT) 41 Alkaline Phosphatase 98 Total Protein 8.2 Albumin 4.1 Globulin 4.1 Albumin/Globulin Ratio 1.0 L Amylase Level 33 Lipase 21 Chemistry Comments Re-Evaluation Re-Evaluation : Re-Evaluation Time: 17:37 Re-Evaluation: Worsened Progress The patient now has abdominal pain in his writhing around in the bed. He states it is primarily in the epigastric and right upper quadrant region. Plan: GI cocktail, right upper quadrant ultrasound, bladder scan. Medical Decision Making Additional information obtaine: old records Findings I received outside records from the patient's recent hospitalization. He has a history of chronic abdominal pain and vomiting. He was admitted recently with sepsis and UTI. It was thought to be a fungal UTI and he was treated with antifungals after infectious disease consult. Received care of patient to follow up ultrasound. Ultrasound that has reassuring for no major pathologic derangements although that has some changes known of the liver. Reviewed urinalysis and agree with the above. We had this is an exacerbation of patient's chronic abdominal pain. Differential Dx:Considerations: Appendicitis, Bowel obstruction, Cholangitis, Cholelithasis, Constipation, Diverticular disease, Esophagitis, Gastritis/PUD, Gastroenteritis, Hernia, Pancreatitis Additional Comments The patient presents with an episode of upper abdominal pain which has since resolved. He does report a history of gallstones but has no right upper quadrant tenderness currently. Labs were unremarkable including normal LFTs. Urinalysis with some abnormalities, but he is currently being treated with antibiotics for a UTI. Departure Disposition: HOME / SELF CARE / HOMELESS Impression: Primary Impression: Colicky abdominal pain Additional Impression: Acute urinary tract infection Condition: Stable Discharge Instructions: Abdominal Pain (Nonspecific) Referrals: NO PRIMARY CARE PROVIDER (PCP) Signature Scribe Signature: na Attestation: The note accurately reflects work and decisions made by me.Grey Luna MD 07/11/25 18:36 na SIRISHA HOBBS MD Jul 11, 2025 15:33 GREY LUNA MD Jul 11, 2025 18:36
[2025-07-11 16:21] LABS: LEUKOCYTE ESTERASE ,URINE LARGE (Neg); NITRITES, URINE NEGATIVE (Neg); OCCULT BLOOD,URINE SMALL (Neg)
[2025-07-11 16:23] LABS: UA COLLECTION TYPE CLN CATCH MIDSTREAM
[2025-07-11 16:24] LABS: SQUAMOUS EPITHELIAL CELL,UR NONE SEEN /LPF (FEW)
[2025-07-11 16:26] LABS: YEAST MANY /HPF (NEGATIVE)
[2025-07-11] MEDS: mag hydrox/Alum hydrox/simeth 30ml oral suspension PO ONE (17:41)
[2025-07-11] MEDS: LIDOcaine 2% Viscous 15ml cup MM ONE (17:42)
--- NOTE | 2025-07-11 18:27 | RADIOLOGY REPORT ---
ULTRASOUND ABDOMEN, LIMITED RIGHT UPPER QUADRANT: REASON FOR EXAM: Right upper quadrant pain, intermittent, sharp stabbing TECHNIQUE: Real-time sector scans in the transverse and longitudinal planes were obtained through the right upper quadrant of the abdomen. FINDINGS: The liver is of normal size and contour. The liver is mildly echogenic. There is no intrahepatic biliary ductal dilatation. There is hepatopetal flow in the portal vein. The common bile duct measures 4 mm. No gallstones or sludge are identified. There is no gallbladder wall thickening nor pericholecystic fluid. There is no sonographic Hope's sign. The pancreas is largely obscured by bowel gas. The right kidney measures 9.4 cm. No hydronephrosis or nephrolithiasis is identified. There is no evidence of right renal mass or cyst. The visualized portions of the abdominal aorta demonstrate no evidence of aneurysmal dilatation. The visualized inferior vena cava is unremarkable. There is no free fluid identified in the right upper quadrant. IMPRESSION: Diffusely echogenic liver parenchyma. This may be secondary to steatosis or another diffuse hepatic process. Correlate clinically and with liver function tests. No gallbladder pathology identified.
[2025-07-11 19:10] VITALS: BP 155/90; PULSE 77; RESP 16; TEMP 98; O2SAT 96
== END 2025-07-11 19:13 | disposition home or self-care (01) ==
LOC: ER 11:59
DX: N39.0 Urinary tract infection, site not specified (principal); G89.29 Other chronic pain; K21.9 Gastro-esophageal reflux disease without esophagitis
CPT/HCPCS: 36415; 76700; 80053; 81001; 82150; 83690; 85025; 87088; 99284